=== PATIENT | male | born 1945 | race Caucasian/White ===

== ENCOUNTER 2021-09-28 18:47 | Emergency (ER) | payer OTHER ==
[~2021-09-28] VITALS: Ht 185.4 cm; Wt 68.5 kg
[2021-09-28] MEDS ORDERED: ALBU2.5V5 (19:07)
[2021-09-28] MEDS ORDERED: ASPI81CH PO (19:07)
[2021-09-28] MEDS ORDERED: ATOR10 PO (19:08)
[2021-09-28] MEDS ORDERED: ZYRTEC10 M1 PO (19:08)
[2021-09-28] MEDS ORDERED: FINA5 PO (19:09)
[2021-09-28] MEDS ORDERED: DIGOX125 MC1 PO (19:09)
[2021-09-28] MEDS ORDERED: FOLIC ACID0.4 MG (19:10)
[2021-09-28] MEDS ORDERED: METO100ER PO (19:11)
[2021-09-28] MEDS ORDERED: MIRT15 PO (19:11)
[2021-09-28] MEDS ORDERED: PANT40 PO (19:12)
[2021-09-28] MEDS ORDERED: MONT10T (19:12)
[2021-09-28] MEDS ORDERED: Coumadin2 MG PO (19:13)
[2021-09-28 19:35] LABS: BASOPHILS ABSOLUTE AUTO 0.05 K/mm3 (0.00-0.23); BASOPHILS PERCENT AUTO 1 % (0-2); EOSINOPHILS ABSOLUTE AUTO 0.13 K/mm3 (0.00-0.68); EOSINOPHILS PERCENT AUTO 3 % (0-6); Hematocrit 35.9 % (37.0-53.0); Hemoglobin 11.6 g/dL (13.5-17.5); IMMATURE GRAN ABSOLUTE AUTO 0.02 K/mm3 (0.00-0.10); IMMATURE GRAN PERCENT AUTO 0 % (0-1); LYMPHOCYTES ABSOLUTE AUTO 0.95 K/mm3 (0.84-5.20); LYMPHOCYTES PERCENT AUTO 21 % (21-46); MONOCYTES ABSOLUTE AUTO 0.43 K/mm3 (0.16-1.47); MONOCYTES PERCENT AUTO 9 % (4-13); Mean Corpuscular HGB 29.9 pg (26.0-34.0); Mean Corpuscular HGB Conc 32.3 g/dL (31.5-36.5); Mean Corpuscular Volume 93 fL (80-100); Mean Platelet Volume 10.3 fL (9.1-12.4); NEUTROPHILS ABSOLUTE AUTO 3.05 K/mm3 (1.96-9.15); NEUTROPHILS PERCENT AUTO 66 % (41-73); Platelet Count 230 K/mm3 (150-400); RDW Coefficient Variation 13.8 % (11.7-14.2); RDW Standard Deviation 47.1 fL (35.1-46.3); Red Blood Cell Count 3.88 M/mm3 (4.30-5.90); White Blood Cell Count 4.63 K/mm3 (4.00-11.30)
[2021-09-28 19:47] LABS: Anion Gap 8 mmol/L (6-16); Blood Urea Nitrogen 16 mg/dL (8-24); Bun/Creatinine Ratio 16.1 (12.0-20.0); CO2, Blood 27 mmol/L (21-32); Calcium, Blood 8.8 mg/dL (8.5-10.1); Chloride, Blood 109 mmol/L (98-108); Glomerular Filtration Rate >60 (60-); Glucose, Blood 89 mg/dL (70-99); Potassium, Blood 4.5 mmol/L (3.5-5.5); Sodium, Blood 144 mmol/L (136-145); Troponin I <0.015 ng/mL (0.000-0.040)
== END 2021-09-28 22:45 | disposition home or self-care (01) ==
LOC: ER 18:47
PROVIDERS: Emergency Medicine
DX: R07.9 Chest pain, unspecified (principal); D64.9 Anemia, unspecified; Z79.899 Other long term (current) drug therapy; Z79.82 Long term (current) use of aspirin; Z79.01 Long term (current) use of anticoagulants; I48.91 Unspecified atrial fibrillation
CPT/HCPCS: 71045; 80048; 84484; 85025; 93005; 93010; 99285-25; A9270

== ENCOUNTER 2022-04-15 00:58 | Inpatient (IN) | payer OTHER ==
[~2022-04-15] VITALS: Ht 185.4 cm; Wt 72.2 kg
[~2022-04-15 00:58] MED LIST: ALBU2.5V5; ASPI81CH PO; ATOR10 PO; Coumadin2 MG PO; DIGOX125 MC1 PO; FINA5 PO; FOLIC ACID0.4 MG; METO100ER PO; MIRT15 PO; MONT10T PO; PANT40 PO; ZYRTEC10 M1 PO
[2022-04-15 01:30] LABS: BASOPHILS ABSOLUTE AUTO 0.01 K/mm3 (0.00-0.23); BASOPHILS PERCENT AUTO 0 % (0-2); EOSINOPHILS ABSOLUTE AUTO 0.01 K/mm3 (0.00-0.68); EOSINOPHILS PERCENT AUTO 0 % (0-6); Hematocrit 38.8 % (37.0-53.0); Hemoglobin 12.6 g/dL (13.5-17.5); IMMATURE GRAN ABSOLUTE AUTO 0.05 K/mm3 (0.00-0.10); IMMATURE GRAN PERCENT AUTO 1 % (0-1); LYMPHOCYTES ABSOLUTE AUTO 0.93 K/mm3 (0.84-5.20); LYMPHOCYTES PERCENT AUTO 12 % (21-46); MONOCYTES ABSOLUTE AUTO 0.56 K/mm3 (0.16-1.47); MONOCYTES PERCENT AUTO 7 % (4-13); Mean Corpuscular HGB 27.9 pg (26.0-34.0); Mean Corpuscular HGB Conc 32.5 g/dL (31.5-36.5); Mean Corpuscular Volume 86 fL (80-100); Mean Platelet Volume 9.9 fL (9.1-12.4); NEUTROPHILS ABSOLUTE AUTO 6.12 K/mm3 (1.96-9.15); NEUTROPHILS PERCENT AUTO 80 % (41-73); Platelet Count 230 K/mm3 (150-400); RDW Coefficient Variation 17.9 % (11.7-14.2); RDW Standard Deviation 55.7 fL (35.1-46.3); Red Blood Cell Count 4.51 M/mm3 (4.30-5.90); White Blood Cell Count 7.68 K/mm3 (4.00-11.30)
[2022-04-15 01:48] LABS: Albumin, Blood 3.4 g/dL (3.4-5.0); Bilirubin, Total 1.6 mg/dL (0.1-1.0); Calcium, Blood 8.6 mg/dL (8.5-10.1); Globulin, Blood 3.3 g/dL (2.2-4.0); Potassium, Blood 4.6 mmol/L (3.5-5.5); Total Protein, Blood 6.7 g/dL (6.4-8.2)
[2022-04-15 04:28] LABS: International Normalized Ratio 1.25; Prothrombin Time Results 12.9 Sec (9.7-11.5)
[2022-04-15 05:41] LABS: BASOPHILS ABSOLUTE AUTO 0.01 K/mm3 (0.00-0.23); BASOPHILS PERCENT AUTO 0 % (0-2); EOSINOPHILS ABSOLUTE AUTO 0.01 K/mm3 (0.00-0.68); EOSINOPHILS PERCENT AUTO 0 % (0-6); Hematocrit 43.1 % (37.0-53.0); Hemoglobin 13.7 g/dL (13.5-17.5); IMMATURE GRAN ABSOLUTE AUTO 0.01 K/mm3 (0.00-0.10); IMMATURE GRAN PERCENT AUTO 0 % (0-1); LYMPHOCYTES ABSOLUTE AUTO 0.47 K/mm3 (0.84-5.20); LYMPHOCYTES PERCENT AUTO 11 % (21-46); MONOCYTES ABSOLUTE AUTO 0.27 K/mm3 (0.16-1.47); MONOCYTES PERCENT AUTO 6 % (4-13); Mean Corpuscular HGB 27.9 pg (26.0-34.0); Mean Corpuscular HGB Conc 31.8 g/dL (31.5-36.5); Mean Corpuscular Volume 88 fL (80-100); Mean Platelet Volume 9.8 fL (9.1-12.4); NEUTROPHILS ABSOLUTE AUTO 3.69 K/mm3 (1.96-9.15); NEUTROPHILS PERCENT AUTO 83 % (41-73); Platelet Count 233 K/mm3 (150-400); RDW Coefficient Variation 18.1 % (11.7-14.2); RDW Standard Deviation 56.8 fL (35.1-46.3); Red Blood Cell Count 4.91 M/mm3 (4.30-5.90); White Blood Cell Count 4.46 K/mm3 (4.00-11.30)
[2022-04-15 06:02] LABS: Albumin, Blood 3.3 g/dL (3.4-5.0); Bilirubin, Total 2.3 mg/dL (0.1-1.0); Calcium, Blood 8.2 mg/dL (8.5-10.1); Globulin, Blood 3.4 g/dL (2.2-4.0); Potassium, Blood 4.6 mmol/L (3.5-5.5); Total Protein, Blood 6.7 g/dL (6.4-8.2)
--- NOTE | 2022-04-15 13:11 | NUR ---
UPDATE PT LEFT FOR SURGERY AT 1300 VIA HOSPITAL BED AND OCCOMPANIED BY TWO STAFF MEMBERS. PT ON RA DURING TRANFER. PT CHART WITH STAFF DURING TRANSFER.
--- NOTE | 2022-04-15 13:33 | NUR ---
History, Chart, Medications and Allergies reviewed before start of procedure.Pre-Op teaching done. Pt verbalizes understanding.
--- NOTE | 2022-04-15 13:57 | NUR ---
UPDATE AT [address] PLACED ORDER FOR 5MG LOPRESSOR IV Q30. THIS RN CONTACTED HOSPITALIST FOR UPDATE TO MEDICATION ORDER. THIS RN WAS THEN INSTRUCTED TO ORDER A LR 1000MG AT A WIDE OPEN RATE DURING THE LOPRESSOR PUSHES. THIS RN PUT IN ORDERS AND CONTINUED WITH ORDERS.
--- NOTE | 2022-04-15 14:43 | NUR ---
04/15/22 1443 Chaparrita Avery PATIENT ON SCHEDULED ZOSYN. NO INTRAOPERATIVE ANTIBIOTICS ORDERED PER SURGEON.
--- NOTE | 2022-04-15 15:58 | NUR ---
DIFFICULTY KEEPING MONITORS IN PLACE DR CONRAD AWARE
--- NOTE | 2022-04-15 15:59 | NUR ---
LR BOLUS GIVEN TO HELP SUPPORT BP PER DR CONRAD 800ML
--- NOTE | 2022-04-15 16:09 | NUR ---
UPDATE REPORT RECIEVED FROM DUPLEX TRIMMER AT 1603.
--- NOTE | 2022-04-15 17:16 | NUR ---
UPDATE PT ARRIVED FROM SURGICAL PROCEDURE AT 1620. PT HAS KENNETH DRAIN AT RIGHT ABD, BANDAGE C/D/I AT THIS TIME. PT HAS NG TUBE PLACED IN RIGHT NARE PER ORDERS. PT HR TACHY UPON ARRIVAL IN THE 110-120'S. PT BP'S SOFT IN THE 90'S SYSTOLIC. PT CONFUSED POSSIBLY FROM MEDICATIONS FROM PROCEDURE, PT WANTS TO PULL ON NG TUBE THINKING THEY ARE HIS GLASSES. SAUSAGE STUFFER CONCERNED AFTER REORT OF PT RECIEVING MORE FLUIDS IN ORTO KEEP BP'S UP. THIS RN CONTACTED , TRANSFER TO ICU ORDERED.
[2022-04-15 17:21] LABS: Albumin, Blood 2.7 g/dL (3.4-5.0); Anion Gap 8 mmol/L (6-16); Blood Urea Nitrogen 29 mg/dL (8-24); Bun/Creatinine Ratio 20.1 (12.0-20.0); CO2, Blood 22 mmol/L (21-32); Calcium, Blood 8.3 mg/dL (8.5-10.1); Chloride, Blood 110 mmol/L (98-108); Creatinine, Blood 1.44 mg/dL (0.60-1.20); Glomerular Filtration Rate 50 (60-); Glucose, Blood 134 mg/dL (70-99); Phosphorus, Blood 5.7 mg/dL (2.5-4.9); Potassium, Blood 5.1 mmol/L (3.5-5.5); Sodium, Blood 140 mmol/L (136-145)
--- NOTE | 2022-04-15 17:37 | NUR ---
TRANSFER UPDATE PT TRANSFERED TO ICU 5 AT 1730 VIA HOSPITAL BED AND SLID TO ICU VIA SLIDE SHEET AND FOUR PERSONEL. PT BELONGINGS AND CHART WITH PT FOR TRANSFER. REPORT GIVEN TO ICU NURSE AT BEDSIDE.
--- NOTE | 2022-04-15 18:55 | NUR ---
ASSUMPTION OF CARE AND SHIFT SUMMARY RECEIVED PATIENT FROM PCU AT 1725. PATIENT ANWERED ALL ORIENTATION QUESTIONS CORRECTLY; SLOW TO RESPOND. PATIENT DOES APPEAR TO HAVE PERIODS OF CONFUSION AND NEEDS REMINDERS NOT TO GRAB AT NG TUBE. PATIENT NEUTRAL AFFECT. ANXIOUS AT TIMES. WEAK BUT ABLE TO MOVE ALL EXTREMITIES. PATIENT AFEBRILE. PATIENT COMPLAINS OF 6/10 ABD PAIN. RESP WNL; SATTING 90% AND GREATER ON RA. LUNGS CLEAR T/O. PATIENT IN A. FIB WITH RVR AND SOFT BP WHEN ARRIVED. 15 MG DILTIAZEM PUSH GIVEN OVER SEVERAL MINUTES. RVR RESOLVED AND BP HELD STABLE. FINGERNAILS COLD AND DUSKY BUT CAP REFILL LESS THAN [address]. ABD GUARDED WITH HYPOACTIVE BOWEL SOUNDS NOTED. KENNETH DRAIN DRAINED 80 MLS OF BILIARY DRAINAGE. NG TO LIS. DATE OF LAST BM UNKNOWN. MILAN IN PLACE; DRAINING DARK ORANGE COLORED URINE. 2 LACERATIONS NOTED TO ABD, ALONG WITH KENNETH DRAIN TO R ABD. LR AT 100 MLS/ HOUR, NS TKO FOR ZOSYN. BED LOW, CALL LIGHT IN REACH, BED ALARM ON. PATIENT ORIENTED TO UNIT, ROOM AND CALL LIGHT. REPORT WILL BE GIVEN TO ASSUMING TOOL DESIGN DRAFTER NURSE SHORTLY.
--- NOTE | 2022-04-15 20:00 | NUR ---
ASSUMED CARE OF PT AT 1915. REPORT RECEIVED AT BEDSIDE. PT PRESENTS IN BED. ALERT AND SOMEWHAT DISORIENTED. DOES HOLD CONVERSATION WELL. WHEN NOT ENGAGED IN CONVERSATION PT DEMONSTRATES POOR SHORT TERM MEMORY, AND BEING DISORIENTED. HAVE MEDICATED PT WITH 25 MCG'S FENTANYL FOR ABDOMINAL PAIN. PT ACKNOWLEDGES THIS HAS HELPED. KENNETH DRAINED OF 100 ML SEROUSANGEOUS FLUID. KENNETH BULB BACK TO COMPRESSED. PT ON ROOM AIR MAINTAINS > 90 PERCENT SATURATIONS. SATURATIONS HAVE DEMONSTRATED BEING DIFFIUCLT TO READ TO FINGERS. WILL POSSIBLY DO SPOT CHECKS. WILL REVIEW CHART AND PLAN OF CARE.
--- NOTE | 2022-04-16 01:44 | NUR ---
PT ADMITS THAT HE HAS BEEN HAVING HALLUCINATIONS. "THERE ARE A BUNCH OF BEES UP THERE." HE INDICATES BY POINTING. ALSO ACKNOWLEDGES THAT HE KNOWS THAT THIS IS JUST A HALLUCINATION. PT HAS BEEN MEDICATED WITH 25 MCG'S AND ANOTHER DOSE OF 50 MCG'S FENTANYL FOR ABDOMINAL PAIN POST OP. PT STATES THAT THESE DOSES HAVE BEEN HELPFUL. WILL CONTINUE TO MONITOR PT.
--- NOTE | 2022-04-16 01:49 | NUR ---
DILTIAZEM DRIP DECREASED TO 5 MG/HOUR. PT'S HEART RATE 80-90'S TO ELICIT DECREASE.
--- NOTE | 2022-04-16 03:23 | NUR ---
PT'S SISTER AND LALI ARRIVE FROM [place]. PT VISITS WITH THEM. HAS SOME HALLUCINATIONS DURING THEIR VISIT. SISTER HAS ALSO TAKEN PT'S BELONGINGS HOME INCLUDING HIS WALLET.
[2022-04-16 05:23] LABS: Hematocrit 36.8 % (37.0-53.0); Hemoglobin 11.8 g/dL (13.5-17.5); Mean Corpuscular HGB Conc 32.1 g/dL (31.5-36.5); Mean Corpuscular Volume 87 fL (80-100); Mean Platelet Volume 10.4 fL (9.1-12.4); Platelet Count 180 K/mm3 (150-400); RDW Coefficient Variation 18.6 % (11.7-14.2); RDW Standard Deviation 57.2 fL (35.1-46.3); Red Blood Cell Count 4.21 M/mm3 (4.30-5.90); White Blood Cell Count 4.86 K/mm3 (4.00-11.30)
--- NOTE | 2022-04-16 05:32 | NUR ---
MEDICATED PT WITH 25 MCG'S FENTANYL THIS MORNING FOR COMPLAINT OF POST OP SURGICAL PAIN. PT REMAINS MILD/MODERATELY CONFUSED. DOES REORIENT QUICKLY. PT DOES HALLUCINATE SEEING HIS DOG IN THE ROOM. PT HAS BEEN TURNED Q 2 HOURS THROUGHOUT THE NIGHT. PT DOES DEMONSTRATE SOME FEAR DURING TURNS. REASSURED PT OF SAFETY WITH TURNS. ALLOWED PT TO COUNT TO THREE TO CONTROL THE TURNS. WILL CONTINUE TO MONITOR PT, AND WILL REPORT OFF TO ONCOMING RN.
[2022-04-16 06:04] LABS: Albumin, Blood 2.5 g/dL (3.4-5.0); Albumin/Globulin Ratio 0.8 (0.8-1.8); Bilirubin, Total 2.6 mg/dL (0.1-1.0); Bun/Creatinine Ratio 24.4 (12.0-20.0); Calcium, Blood 8.4 mg/dL (8.5-10.1); Creatinine, Blood 1.23 mg/dL (0.60-1.20); Globulin, Blood 3.1 g/dL (2.2-4.0); Magnesium, Blood 2.1 mg/dL (1.6-2.4); Phosphorus, Blood 3.3 mg/dL (2.5-4.9); Potassium, Blood 4.7 mmol/L (3.5-5.5); Total Protein, Blood 5.6 g/dL (6.4-8.2)
[2022-04-16 06:06] LABS: BAND PERCENT MAN 38 % (0-8); BASOPHILS PERCENT MAN 0 % (0-2); EOSINOPHILS PERCENT MAN 0 % (0-6); LYMPHOCYTES ABSOLUTE MAN 0.34 K/mm3 (0.84-5.20); LYMPHOCYTES PERCENT MAN 7 % (21-46); MONOCYTES ABSOLUTE MAN 0.14 K/mm3 (0.16-1.47); MONOCYTES PERCENT MAN 3 % (4-13); NEUTROPHILS ABSOLUTE MAN 4.37 K/mm3 (1.96-9.15); SEG NEUTROPHILS PERCENT MAN 52 % (41-73); TOTAL CELLS COUNTED 100
--- NOTE | 2022-04-16 07:48 | NUR ---
ASSUME CARE: I have assumed care of pt at this time.
[2022-04-16] MEDS ORDERED: PRED FORTE5 ML BOTHEYES (11:47)
[2022-04-16] MEDS ORDERED: LATA.005SO BOTHEYES (11:49)
[2022-04-16] MEDS ORDERED: TIMO.5OPSO BOTHEYES (11:49)
[2022-04-16] MEDS ORDERED: FLUTICASONE-SA1 EAC9 INH (15:06)
[2022-04-16] MEDS ORDERED: COMBIVENT RESPIM4 G1 INH (15:07)
[2022-04-16] MEDS ORDERED: MIDO5 PO (15:09)
[2022-04-16] MEDS ORDERED: FOLI1 PO (15:10)
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
--- NOTE | 2022-04-16 20:00 | NUR ---
ASSUMED CARE OF PT AT 1915. REPORT RECEIVED AT BEDSIDE. PT PRESENTS IN BED. KAYCEE VEST IN PLACE FOR SAFETY. UNFORTUNATELY PT PULLED OUT AN IV, AND HIS ABDOMINAL DRESSING. TOOK HIS LIFT SHEET AND TIED THE LIFT STRAPS AROUND HIS LEG. PULLED AT HIS MILAN CATHETER ALL IN A SHORT PERIOD WHILE THIS RN WAS OUT OF THE ROOM. SOFT WRIST RESTRAINTS APPLIED. ALSO REQUESTED REMOTE MONITORING WITH CAMERA BE UTILIZED. WILL REVIEW CHART AND PLAN OF CARE FOR THIS PT.
--- NOTE | 2022-04-17 01:46 | NUR ---
CALL MADE TO DR CARLOS CONCERNING PATIENT NOT SLEEPING FOR > 2 DAYS. ALSO ABOUT INCREASING DELIRIUM TYPE AFFECT. ORDER FOR ATIVAN 0.5 MG WITH A MAY REPEAT TIMES ONE ORDER. BOTH DOSES HAVE BEEN GIVEN FOR A TOTAL OF 1 MG IV. PT CURRENTLY SLEEPING. WILL MONITOR PT CLOSELY FOR ANY CHANGES. CARDIAZEM AT 10 MG PER HOUR. HEART RATE REMAINS AFIB WITH RATE < 120 BPM. KENNETH DRAIN TO LIWS WITH RETURN OF SEROUSAINGEOUS DRAINAGE. DRESSING PLACED OVER KENNETH DRAIN INSERTION SITE. PT HAS HAD EPISODES OF GETTING OUT OF SOFT WRIST RESTRAINT ON LEFT HAND. HAVE MADE USE OF REMOTE MONITORS TO GIVE VIEW OF PT FOR HIS SAFETY.
[2022-04-17 04:45] LABS: BASOPHILS ABSOLUTE AUTO 0.01 K/mm3 (0.00-0.23); BASOPHILS PERCENT AUTO 0 % (0-2); Hematocrit 32.4 % (37.0-53.0); Hemoglobin 10.6 g/dL (13.5-17.5); LYMPHOCYTES ABSOLUTE AUTO 0.27 K/mm3 (0.84-5.20); LYMPHOCYTES PERCENT AUTO 4 % (21-46); MONOCYTES ABSOLUTE AUTO 0.17 K/mm3 (0.16-1.47); MONOCYTES PERCENT AUTO 3 % (4-13); Mean Corpuscular HGB Conc 32.7 g/dL (31.5-36.5); Mean Corpuscular Volume 86 fL (80-100); Platelet Count 157 K/mm3 (150-400); RDW Coefficient Variation 18.5 % (11.7-14.2); RDW Standard Deviation 56.2 fL (35.1-46.3); Red Blood Cell Count 3.79 M/mm3 (4.30-5.90); White Blood Cell Count 6.19 K/mm3 (4.00-11.30)
[2022-04-17 04:46] LABS: EOSINOPHILS PERCENT AUTO 0 % (0-6); IMMATURE GRAN ABSOLUTE AUTO 0.12 K/mm3 (0.00-0.10); IMMATURE GRAN PERCENT AUTO 2 % (0-1); NEUTROPHILS ABSOLUTE AUTO 5.62 K/mm3 (1.96-9.15); NEUTROPHILS PERCENT AUTO 91 % (41-73)
[2022-04-17 05:27] LABS: Albumin, Blood 2.3 g/dL (3.4-5.0); Albumin/Globulin Ratio 0.7 (0.8-1.8); Bilirubin, Total 2.3 mg/dL (0.1-1.0); Bun/Creatinine Ratio 24.7 (12.0-20.0); Calcium, Blood 8.4 mg/dL (8.5-10.1); Creatinine, Blood 0.93 mg/dL (0.60-1.20); Globulin, Blood 3.3 g/dL (2.2-4.0); Phosphorus, Blood 1.8 mg/dL (2.5-4.9); Potassium, Blood 3.1 mmol/L (3.5-5.5); Total Protein, Blood 5.6 g/dL (6.4-8.2)
--- NOTE | 2022-04-17 07:32 | NUR ---
PT HAS HAD APPROX 2 AND A HALF HOUR SLEEP AFTER DOSE OF ATIVAN. PT CURRENTLY VERY ACTIVE IN BED. ATTEMPTS TO GET AHOLD OF TUBES AND LINES. KENNETH DRAIN CONNECTED TO LIWS WITH RETURN OF SEROUSAINGEOUS FLUID. DRESSING TO ABDOMEN INTACT. NG TUBE WITH GREENISH OUTPUT. WILL REVIEW CONTINUE TO MONITOR PT, AND WILL REPORT OFF TO ONCOMING RN.
--- NOTE | 2022-04-17 11:11 | NUR ---
Transfer note Pt transfered from ICU, report from suzette Kulkarni. Pt to room at approx 1050, 4 person assist with slider sheet. Pt alert, oriented to person and surrounding. Speech in garbled. Spo2 >90% on ra, resp rate 24, ls coarse t/o. When asked pt shakes had "no" when asked if pain and sob. Pt tele afib 90-120, bp stable. Abd distended, firm, tender, absent bt x4 quad; ng tube to low intermittent suctions drainging brown; juana to suction low/mod light red drainage in color. Bilateral wirst restraints and phyllis vest in place. Cardizem gtt at 15mg/hr, ns at 100 ml/hr, kphos and antibiotics infusing per orders. Vss. No other acute changes. Will continue to monitor.
--- NOTE | 2022-04-17 19:34 | NUR ---
Shift Summary No acute changes during shift. KENNETH drain back to KENNETH suctions, no longer on wall suction, per new orders; draining serosanguineous fluid. Pt continues to be confused, calling out for "Rebekah". Pt has had several BM this afternoon, liquid dark brown, with initially small brown pellet. Ng tube in place and set to low intermittent suction, with minimla brown/green drainage. Other vss. No other acute changes noted. Report given to oncoming rn.
[2022-04-18 04:05] LABS: Hematocrit 31.3 % (37.0-53.0); Hemoglobin 10.3 g/dL (13.5-17.5); Mean Corpuscular HGB 28.2 pg (26.0-34.0); Mean Corpuscular HGB Conc 32.9 g/dL (31.5-36.5); Mean Corpuscular Volume 86 fL (80-100); Mean Platelet Volume 10.3 fL (9.1-12.4); Platelet Count 169 K/mm3 (150-400); RDW Coefficient Variation 18.2 % (11.7-14.2); RDW Standard Deviation 56.3 fL (35.1-46.3); Red Blood Cell Count 3.65 M/mm3 (4.30-5.90); White Blood Cell Count 7.38 K/mm3 (4.00-11.30)
[2022-04-18 04:27] LABS: Albumin, Blood 2.1 g/dL (3.4-5.0); Albumin/Globulin Ratio 0.6 (0.8-1.8); Bilirubin, Total 2.1 mg/dL (0.1-1.0); Bun/Creatinine Ratio 25.2 (12.0-20.0); Calcium, Blood 7.9 mg/dL (8.5-10.1); Creatinine, Blood 0.79 mg/dL (0.60-1.20); Globulin, Blood 3.3 g/dL (2.2-4.0); Phosphorus, Blood 1.9 mg/dL (2.5-4.9); Potassium, Blood 3.2 mmol/L (3.5-5.5); Total Protein, Blood 5.4 g/dL (6.4-8.2)
[2022-04-18 05:18] LABS: BAND PERCENT MAN 14 % (0-8); BASOPHILS PERCENT MAN 0 % (0-2); EOSINOPHILS PERCENT MAN 0 % (0-6); LYMPHOCYTES ABSOLUTE MAN 0.22 K/mm3 (0.84-5.20); LYMPHOCYTES PERCENT MAN 3 % (21-46); MONOCYTES ABSOLUTE MAN 0.29 K/mm3 (0.16-1.47); MONOCYTES PERCENT MAN 4 % (4-13); NEUTROPHILS ABSOLUTE MAN 6.86 K/mm3 (1.96-9.15); SEG NEUTROPHILS PERCENT MAN 79 % (41-73); TOTAL CELLS COUNTED 100
--- NOTE | 2022-04-18 06:00 | NUR ---
PT RESTING MOST OF NIGHT, AROUSES TO VOICE AND ABLE ANSWER QUESTIONS, REMEMBERS THAT HE HAD ABDOMINAL PAIN. PT IS FORGETFUL, AND HAS TO BE REORIENTED, FOUND PULLING AT GOWN & BLANKETS AND MILAN. WRIST RESTRAINTS & KAYCEE IN PLACE. VSS, CONT IN AFIB W RATE CONTROLLED, CARDIZEM GTT AT 10MG/HR. MED W FENTANYL X1 AFTER KENNETH DRAIN EMPTIED AND PT HAD INCREASED PAIN. NG W THICK DK MAROON DRNG. HAS HAD 2 BROWN UNFORMED STOOLS. CONT ON ROOM AIR.
--- NOTE | 2022-04-18 18:19 | NUR ---
Shift Summary Pt appear to be sleeping t/o shift, wakes easily to verbal stimuli; oriented to person, surrounding and event; calm and cooperative with care. Pt intermittently reports pain to abd, passes quickly. Pt forgetful, pulling at gown and blanket, bilateral wrist restraints and phyllis vest in place. Pt report seeing "bugs on the ceiling". Pt denies chest pain/pressure, sob, nasuea and dizziness during shift. Tele with pvc 90-120, on cardizem gtt at 10mg/ml during shift, bp stable. Ls clear t/o, spo2 >90% on ra, breathing even and unlabored, tachypnic at times. Pt abd mild distention, firm and tender on palpataion, hypo active t/o, pt continues to pass gas and pass loose stools, brown in color. Ng tube in place this am draining brown liquid, new order to remover per Dr Sorto, removed this evening, pt tolerated well. KENNETH draing to ruq draining serosanguineous fluids approx 100ml out during shift. Ogden in place, patent and draining. Vss. No other acute changes noted. Will contine to monitor until report given to oncoming rn.
--- NOTE | 2022-04-19 05:57 | NUR ---
SHIFT SUMMARY NO ACUTE CHANGES THIS SHIFT. VSS. ALERT, ORIENTED TO 2-3. OFTEN TIMES MUMBLES TO HIMSELF. REMAINS IN RESTRAINTS, SBWR AND VEST. WAS SUCCESFUL AT GETTING OUT OF WRIST RESTRAINTS X2. BEGINS TO PULL AT LINES. PT ON CARDIZEM GTT @ 10 UPON SHIFT START, THEN TITRATED TO 5, THEN 0. HR 80'S. BP STABLE. MILAN PATENT AND DRAINING. KENNETH DRAIN PATENT, DRAINING SEROSAINGUINOUS FLUID. PAIN MEDS X1 PER PT REQUEST. OTHERWISE, PT RESTING OFF AND ON. BED ALARM ON. CAMERAS ON. BED IN LOW POSITION.
[2022-04-19 08:19] LABS: BASOPHILS ABSOLUTE AUTO 0.01 K/mm3 (0.00-0.23); BASOPHILS PERCENT AUTO 0 % (0-2); EOSINOPHILS ABSOLUTE AUTO 0.15 K/mm3 (0.00-0.68); EOSINOPHILS PERCENT AUTO 2 % (0-6); Hemoglobin 9.9 g/dL (13.5-17.5); IMMATURE GRAN ABSOLUTE AUTO 0.05 K/mm3 (0.00-0.10); IMMATURE GRAN PERCENT AUTO 1 % (0-1); LYMPHOCYTES ABSOLUTE AUTO 0.35 K/mm3 (0.84-5.20); LYMPHOCYTES PERCENT AUTO 5 % (21-46); MONOCYTES ABSOLUTE AUTO 0.41 K/mm3 (0.16-1.47); MONOCYTES PERCENT AUTO 6 % (4-13); Mean Corpuscular HGB 28.3 pg (26.0-34.0); Mean Corpuscular Volume 86 fL (80-100); Mean Platelet Volume 10.3 fL (9.1-12.4); NEUTROPHILS ABSOLUTE AUTO 5.69 K/mm3 (1.96-9.15); NEUTROPHILS PERCENT AUTO 85 % (41-73); Platelet Count 179 K/mm3 (150-400); RDW Coefficient Variation 18.1 % (11.7-14.2); RDW Standard Deviation 56.2 fL (35.1-46.3); White Blood Cell Count 6.66 K/mm3 (4.00-11.30)
[2022-04-19 08:34] LABS: Albumin, Blood 1.9 g/dL (3.4-5.0); Anion Gap 7 mmol/L (6-16); Blood Urea Nitrogen 17 mg/dL (8-24); Bun/Creatinine Ratio 23.7 (12.0-20.0); CO2, Blood 24 mmol/L (21-32); Calcium, Blood 7.7 mg/dL (8.5-10.1); Chloride, Blood 115 mmol/L (98-108); Creatinine, Blood 0.72 mg/dL (0.60-1.20); Glomerular Filtration Rate 95 (60-); Glucose, Blood 90 mg/dL (70-99); Phosphorus, Blood 1.8 mg/dL (2.5-4.9); Sodium, Blood 146 mmol/L (136-145)
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
--- NOTE | 2022-04-19 16:04 | NUR ---
Shift Summary Pt alert, oriented to person and surroundings, pt confused, hallucinating at times. Pt up in chair this am for majority of shift, pt back to bed this afternoon. Pt has KENNETH drain to ruq, continues to drain serosanguineous fluids. Pt had difficulty swallowing this am with breakdfast, notified Dr Cisneros, new orders for speech therapy eval. Dr Sorto at bedside this afternoon, new order to remove wade; post removal void noted. Pt had 2 bms during shift, dark brown and pasty. Pt denies pain, sob, nausea, and dizziness. Pt spo2 >90% on ra. Tele afib, hr increased to 120-130's restarted cardizem gtt this afternoon, MD aware. Vss. no other acute changes noted. Will continue to monitor until report given to oncoming rn.
--- NOTE | 2022-04-19 19:57 | NUR ---
ASSUMPTION OF CARE - NOTED SOME DRAINAGE FROM KENNETH DRAIN ON GOWN AND PT SMELT OF A RECENT BOWEL MOVEMENT. RN AND ANSWERING SERVICE TELEPHONE OPERATOR GAVE PT BEDBATH AND REPLACED SOME SHEETS. RN CHANGED KENNETH DRESSING WITH SPLIT GUAZE AND MEDIPORE TAPE. I ALSO STRIPPED THE KENNETH DRAIN IN WHICH PATIENT DID EXPERIENCE SOME DISCOMFORT WITH THAT. STITCH REMAINS INTACT AND NOT TUGGING OR PULLING. INSERTION SITE OF DRAIN LOOKS C/D/I WITHOUT REDNESS OR PURULENT DRAINAGE. ABD BINDER PLACED ON PATIENT IN ATTEMPT TO KEEP PATIENT FROM PULLING AT DRAIN OR LINES. VEST AND WRIST RESTRAINTS REMOVED AT THIS TIME AND WILL TRIAL PT WITHOUT THEM. PT APPEARS TO BE TIRED AND WANTS TO REST. BED ALARM AND THREE SIDE RAILS IN PLACE. I NOTIFIED MONITORING ROOM THAT HE IS LESS RESTRAINED, AND TO PLEASE NOTIFY SOON PATIENT APPEARS TO BE MOVING AROUND. POWERGLIDE DRESSING ASSESSED AND APPEARS TO BE PEELING UP SOME, WILL REDRESS THAT POWERGLIDE WELL. LAP SITES HAVE SURGICAL TAPE STILL IN PLACE AND APPEAR TO BE C/D/I WELL.
[2022-04-20 01:20] LABS: BASOPHILS PERCENT AUTO 0 % (0-2); EOSINOPHILS ABSOLUTE AUTO 0.16 K/mm3 (0.00-0.68); EOSINOPHILS PERCENT AUTO 3 % (0-6); Hematocrit 30.4 % (37.0-53.0); Hemoglobin 10.1 g/dL (13.5-17.5); IMMATURE GRAN ABSOLUTE AUTO 0.06 K/mm3 (0.00-0.10); IMMATURE GRAN PERCENT AUTO 1 % (0-1); LYMPHOCYTES ABSOLUTE AUTO 0.46 K/mm3 (0.84-5.20); LYMPHOCYTES PERCENT AUTO 8 % (21-46); MONOCYTES ABSOLUTE AUTO 0.37 K/mm3 (0.16-1.47); MONOCYTES PERCENT AUTO 6 % (4-13); Mean Corpuscular HGB 28.5 pg (26.0-34.0); Mean Corpuscular HGB Conc 33.2 g/dL (31.5-36.5); Mean Corpuscular Volume 86 fL (80-100); Mean Platelet Volume 10.4 fL (9.1-12.4); NEUTROPHILS ABSOLUTE AUTO 4.88 K/mm3 (1.96-9.15); NEUTROPHILS PERCENT AUTO 82 % (41-73); Platelet Count 206 K/mm3 (150-400); RDW Coefficient Variation 17.9 % (11.7-14.2); RDW Standard Deviation 55.7 fL (35.1-46.3); Red Blood Cell Count 3.55 M/mm3 (4.30-5.90); White Blood Cell Count 5.93 K/mm3 (4.00-11.30)
[2022-04-20 01:41] LABS: Albumin, Blood 1.9 g/dL (3.4-5.0); Albumin/Globulin Ratio 0.6 (0.8-1.8); Bilirubin, Total 1.8 mg/dL (0.1-1.0); Bun/Creatinine Ratio 23.2 (12.0-20.0); Calcium, Blood 7.9 mg/dL (8.5-10.1); Creatinine, Blood 0.78 mg/dL (0.60-1.20); Globulin, Blood 3.3 g/dL (2.2-4.0); Magnesium, Blood 1.7 mg/dL (1.6-2.4); Phosphorus, Blood 2.8 mg/dL (2.5-4.9); Total Protein, Blood 5.2 g/dL (6.4-8.2); Vancomycin, Trough 7.3 ug/mL (5.0-10.0)
--- NOTE | 2022-04-20 04:10 | NUR ---
SHIFT SUMMARY PT RESTED WELL THROUGH THE NIGHT. ALERT AND ORIENTED, ABLE TO MAKE NEEDS KNOWN. COOPERATIVE WITH PLAN OF CARE, EASILY REDIRECTABLE. INTERMITTENTLY CONFUSED. TELE READS AFIB 90'S - CARDIZEM GTT RUNNING 5MG/HR. NO C/O CHEST PAIN. SATS >95% ON ROOM AIR. RESTRAINTS REMOVED AT START OF SHIFT AND HAS BEEN GREAT SINCE. BED ALARM REMAINS ON, BUT PT MENTATION MUCH IMPROVED. PT CALLS OUT WHEN HE NEEDS TO VOID - BEEN USING THE URINAL. NO PAIN. VSS. RECEIVING IV ABX AND ELECTROLYTE REPLACEMENT. NO ISSUES WITH PATIETN PULLING AT LINES OR DRAINS. CALL LIGHT WITHIN REACH, BED ALARM ON. BED IN LOWEST POSITION AND WILL CONTINUE TO [facility].
--- NOTE | 2022-04-20 08:00 | NUR ---
Pt is awakened easily, and conversant. He is oriented to person, place, date, and ongoing events. Able to tell me he is in the hospital for an ulcer, that he had surgery, and that he thinks it might be nearly the first of April. Recalls that his sister was here twice, and she went back to [place], and that his niece is watching after his dog at home. Following directions, but sleepy when not engaged in conversation or activity. Denies having any pain at this time. ORal care done, glasses put on at his request, and face washed with damp washcloth. Repositioned in bed. He says that he would really like to be able to start eating again. Also would really like to have a shave today.
--- NOTE | 2022-04-20 12:14 | NUR ---
Pt was sitting up in chair, and started to work with PT. During the walk he because ill-feeling and had to sit down. Blood pressure noted 90/66 at that time, down from 123/84 which was taken while sitting just before working with PT. He was assisted back into the bed, and then c/o pressure headache 06/01. PERRL, and speech and cognition are as they were this morning. He is oriented. ADAN jeffersone placed on pt, blood pressure improved to [address] Cisneros called to report changes.
--- NOTE | 2022-04-20 12:47 | NUR ---
Spoke with Kathi, the pt's sister on the phone and updated her on the pt's condition and ongoing care for him, and plan of care going forward. The pt is sleeping when I came back into the room. He awakens easily, and states his headache is still present. Given Toradol IV as ordered.
[2022-04-20 14:54] LABS: Bun/Creatinine Ratio 20.2 (12.0-20.0); Calcium, Blood 7.7 mg/dL (8.5-10.1); Creatinine, Blood 0.79 mg/dL (0.60-1.20); Potassium, Blood 3.7 mmol/L (3.5-5.5)
--- NOTE | 2022-04-20 15:11 | NUR ---
Dobhoff placed in the right nare. Pt was able to swallow and cooperated with the insertion. He tolerated it well.
--- NOTE | 2022-04-20 16:14 | NUR ---
Waiting for results of xray to verify dobhoff placement before starting tube feeding. The pt is dozing in the recliner chair, awakens easily when spoken to.
--- NOTE | 2022-04-20 17:11 | NUR ---
Pt remained alert, oriented x 4 and cooperative today. No restraits were needed to protect the pt's safety. He was sleepy throughout the day, but not confused. He was up to the chair with occupational therapy today, and when walking in the room with PT had a feeling of being "woozy" and was also hypotensive at the time. This resolved after he was back in bed. He also had a pressure/throbbing headache at the same time, which subsided some on its own, but was later completely relieved with IV Toradol. He unfortunately did not pass his swallow evaluation today, so a Dobhoff was placed and after imaging confirmation of placement, the enteral nutrition was started this evening. Plan is for a barium swallow study tomorrow if possible. He was up to the chair again this afternoon at his request. He has been sometimes continent of urine, and other times incontinent while sleeping. Oral care done by the patient with RN direction.
--- NOTE | 2022-04-20 17:53 | NUR ---
Swelling to the forearms, elbows bilaterally which were noticed this morning are changed by the end of this shift: Swelling to the right forearm and elbow have nearly all resolved after activity and elevation. Left forearm and elbow are still swollen and swelling of shaft of penis is noted this evening. Call earlier to Dr. Cisneros and received order to d/c the continuous saline IV infusion as the pt is now on tube feedings and flushes.
[2022-04-21 02:29] LABS: Bun/Creatinine Ratio 22.8 (12.0-20.0); Calcium, Blood 7.7 mg/dL (8.5-10.1); Creatinine, Blood 0.79 mg/dL (0.60-1.20); Magnesium, Blood 1.7 mg/dL (1.6-2.4); Phosphorus, Blood 2.3 mg/dL (2.5-4.9); Potassium, Blood 3.1 mmol/L (3.5-5.5)
[2022-04-21 02:32] LABS: Vancomycin, Trough 15.1 ug/mL (5.0-10.0)
--- NOTE | 2022-04-21 04:07 | NUR ---
SHIFT SUMMARY PT RESTED WELL THROUGH THE NIGHT. ALERT AND ORIENTED, ABLE TO MAKE NEEDS KNOWN. COOPERATIVE WITH PLAN OF CARE. TELE READS AFIB 80-90'S. CARDIZEM GTT RUNNING AT 5MG/HR. NO C/O CHEST PAIN. SATS >95% ON ROOM AIR. VOIDING TO URINAL WITH ASSISTANCE, ATTENDS IN PLACE IN CASE OF ACCIDENT. NO BM THUS FAR. TUBE FEEDS INCREASED TO 45ML/HR WITH 60ML WATER FLUSH Q1 HR. TURNED Q2. ABD IN PLACE, KENNETH DRAIN OUTPUT 20ML. ELECTROLYTE REPLACEMENT GIVEN - SEE EMAR. MENTATION CONTINUES TO IMPROVE. POWERGLIDE DRESSING CHANGED. VSS. CALL LIGHT WITHIN REACH, BED ALARM ON. BED IN LOWEST POSITION. WILL CONTINUE TO MONITOR. CAMERA ON IN ROOM.
--- NOTE | 2022-04-21 09:11 | NUR ---
Pt is quite alert and oriented today, and speech is clearer. He states that he is "comfortable enough". Worked with speech therapist today, and was able to eat a small amount of breakfast and take oral medications with applesauce. Cardizem gtt on hold at this time; heart rate is 72 bpm after administration of Toprol XL and digoxin. Declined OOB to chair. Voiding using urinal. Tube feeding continues until oral intake is consistent, now at goal rate of 45 cc/hour with 60cc / hour flushes.
--- NOTE | 2022-04-21 11:37 | NUR ---
Assisted pt to use the phone to call his sister, Rebekah. I spoke with Rebekah and gave her an update. Asked her to also call other family members to keep them in the loop as pt requested. Pt assisted to sit at side of bed to use urinal, and orthostatic blood pressures were taken. lyin/71, pulse 81 sittin/60 pulse 82 standin/74 pulse 86 Pt denied dizzyness. lightheadedness and "woozy feeing. Used walker to walk a few steps and get to the chair, waiting for lunch tray.
--- NOTE | 2022-04-21 13:21 | NUR ---
Spiritual care visit conducted. Pt is lying in bed and alert. He is easily encouraged and energize by his own stories, so he tells me many stories about his life, his experience and his friends. He also talks at length about his dog "Moira" and how he is always within six feet of him when he is home. Pt tells me of his frustrations with having limitations and that he loves being outside and gardening. I normalize pt's experience and provide therapeutic listening and gentle family service counselor. Pt responds well and shows signs of an elevated mood.
--- NOTE | 2022-04-21 13:40 | NUR ---
Pt does not remember to use call light for activity assistance. He set off the bed alarm twice in the past hour. Walked into the bathroom to void and have BM on commode. He had trouble understanding directions on how to use the pull cord on the wall when finished toileting; instead was attempting to wrap it around the pull-bar on wall "because I was done". Becomes a bit disoriented and shows difficulty in following directions with use of walker. He is however oriented to person, place, date, and recent events. He seems fatigued and sleeps in between all activity/care. Sat up for lunch for 30 minutes in his recliner chair, and ate about 30% of his lunch tray.
--- NOTE | 2022-04-21 15:58 | NUR ---
Pt attempted OOB, but then said that he didn't need to get up once the bed alarm went off.
--- NOTE | 2022-04-21 17:13 | NUR ---
Assisted up to chair for dinner. He requires a lot of cues, but follows directions cooperatively. Chair/bed alarm in use as the pt doesn't remember to call for assistance.
[2022-04-22 02:44] LABS: Albumin, Blood 1.9 g/dL (3.4-5.0); Anion Gap 7 mmol/L (6-16); Blood Urea Nitrogen 16 mg/dL (8-24); CO2, Blood 23 mmol/L (21-32); Calcium, Blood 7.8 mg/dL (8.5-10.1); Chloride, Blood 112 mmol/L (98-108); Glomerular Filtration Rate 92 (60-); Glucose, Blood 93 mg/dL (70-99); Magnesium, Blood 2.1 mg/dL (1.6-2.4); Phosphorus, Blood 1.6 mg/dL (2.5-4.9); Potassium, Blood 3.6 mmol/L (3.5-5.5); Sodium, Blood 142 mmol/L (136-145)
[2022-04-22 02:46] LABS: Vancomycin, Trough 15.2 ug/mL (5.0-10.0)
--- NOTE | 2022-04-22 06:56 | NUR ---
NOC SHIFT SUMMARY PT ALERT TO LETHARGIC OVERNIGHT, ORIENTED X2-4. HALLUCINATIONS AND LOW GRADE FEVER OVERNIGHT. PT ABLE TO ANSWER DIRECT ORIENTATION QUESTIONS, BUT WOULD TALK ABOUT BOXES IN ROOM FROM HOME ETC. AFIB ON TELEMETRY, RATE CONTROLLED. AMBULATED SBA W/WALKER TO BATHROOM. BM X1. FREQUENT URINATION, BLADDER SCAN SHOWS LESS THAN 100 POST VOID. PT COMPLAINING OF BURNING W/URINATION THIS AM. PT ALSO COMPLAINING OF NAUSEA THIS AM. TF HELD @ 0630 FOR NAUSEA. WILL CONTINUE TO MONITOR AND PASS ON TO DAY RN
--- NOTE | 2022-04-22 08:26 | NUR ---
PT ALERT, SITTING UP IN BED. PT REPORTS DASILVA 9/10 PAIN, WORSE WITH POSITION CHANGE, REPORTS DOUBLE, BLURRED, AND HALO VISION. PT VERY AGITATED, NON-COMPLIANT WITH NEURO ASSESSMENT, GIVES INAPPROPRIATE ANSWERS REFUSES TO ANSWER. VSS. TEMP NOTED 99.3. PT VERY IMPULSIVE, AGITATED BECOMES MORE AGITATED WHEN ATTEMPTS ARE MADE TO REORIENT OR DETOUR PT FROM EXITING BED. PT NOW IS NAUSEOUS, DR GARAY IS CALLED WITH CONCERNS, HE WILL BE IN TO SEE PT SHORTLY, TELEPHONE ORDER OBTAINED FOR DIGOXIN LEVEL R/T THE HALO VISION.
[2022-04-22 09:26] LABS: Digoxin (Lanoxin) 0.48 ug/mL (0.80-2.00)
--- NOTE | 2022-04-22 16:04 | NUR ---
TUBE FEEDING WILL RESUME WHEN K PHOSPHATE IS STARTED, K PHOSPHATE WILL BEGIN ONCE VANCOMYCIN HAS COMPLETED
--- NOTE | 2022-04-22 17:10 | NUR ---
PT VERY CONFUSED TODAY, ORIENTED TO SELF ONLY, HAS BECOME AGITATED T/O THE DAY, VERY DIFFICULT TO REDIRECT. PT CONITNUOUSLY EXITING BED TRIGGERING BED ALARM, AND CENTRAL MONITORING CALLING. TUBE FEED TO BE RESUMED MOMENTARILY PHOSPHATE IS NOW INFUSING. VSS. PT WITH GOOD URINE OUTPUT T/O THE DAY. SISTER SAMPSON WAS UPDATED TODAY. PT WAS MEDCIATED FOR AGITATION WITH ZYPREXA WHICH HAS PROVIDED LITTLE TO NO CHANGE IN AGITATION. PHYSICAL THERAPY PLACED PT IN CHAIR, PT WAS CONTINUOUSLY EXITING CHAIR AND BECAME A HIGHER RISK OF INJURY WHILE IN CHAIR, PT WAS PUT BACK TO BED, HE TRANSFERED BACK TO BED WITH STEADY GAIT, GAIT BELT AND WALKER WHICH HE SEEMED TO TOLERATE WELL
[2022-04-22 20:53] LABS: Source, Urine Clean Catch
[2022-04-22 21:21] LABS: Appearance, Urine Clear (Clear); Bilirubin, Urine Neg (Neg); Blood, Urine Neg (Neg); Glucose Qualitative, Urine Neg (Neg); Ketones, Urine Neg (Neg); Leukocyte Esterase, Urine Neg (Neg); Nitrite, Urine Neg (Neg); Protein, Urine Neg (Neg); Urobilinogen, Urine NORM (Normal)
[2022-04-22 21:29] LABS: Color, Urine Pale Yellow (P-Yellow)
[2022-04-23 04:25] LABS: Bun/Creatinine Ratio 14.8 (12.0-20.0); Creatinine, Blood 0.88 mg/dL (0.60-1.20); Magnesium, Blood 2.2 mg/dL (1.6-2.4); Phosphorus, Blood 2.8 mg/dL (2.5-4.9); Potassium, Blood 4.1 mmol/L (3.5-5.5)
--- NOTE | 2022-04-23 07:15 | NUR ---
NOC SHIFT SUMMARY PT PULLED OUT DOBHOFF AND POWERGLIDE AT START OF SHIFT. ON-CALL MD NOTIFIED AND PER DR. ALLEN OK TO LEAVE LINES OUT AT THIS TIME. PT W/COMPLAINTS OF R SIDED ABD PAIN. PRNS GIVEN W/ RELIEF. PT SLEPT SOUNDLY, ORIENTED X4 BUT IMPULSIVE AND HALLUCINATING AT TIMES ABOUT THINGS IN THE ROOM. VSS PER PT TREND. R KENNETH W/MINIMAL OUTPUT. UP WITH 1 ASSIST TO BSC OR USING URINAL. FREQUENT URINATION AND COMPLAINTS OF URGENCY OVERNIGHT. URINALYSIS SENT. WILL PASS ON TO DAY RN
--- NOTE | 2022-04-23 12:28 | NUR ---
PT TRANSFERRED TO ROOM 345, ALL BELONGINGS SENT WITH PT. REPORT CALLED TO RECEIVING NURSE.
--- NOTE | 2022-04-23 12:36 | NUR ---
pt here from u
--- NOTE | 2022-04-23 14:40 | NUR ---
spoke to jimmy bansal. zosyn rate to be changed to 30/hr.
--- NOTE | 2022-04-23 14:57 | NUR ---
pt bp 96/72 p [address] chavez, no bolus. he request to call if sbp < 90/xx . no other orders
--- NOTE | 2022-04-23 15:48 | NUR ---
pt friend rain came in to bring new clothes at my request. is taking his old dirty clothes back to wash. he will try to take his personal fannypack home also.
--- NOTE | 2022-04-23 17:43 | NUR ---
PT TRANSFERRED IN FROM PCU TODAY. NO C/O PAIN. SISTER IN FROM [place] AT THIS TIME VISITING WITH HIM. HE IS PLEASANT, ALERT AT TIMES . OFTEN STATES CONFUSING THINGS. KENNETH DRAIN HAS VERY LITTLE S/S FLUID SINCE TRANSFER. REMAINS INTACT. CDI. WE ARE SPOON FEEDING SOME NECTAR LIQUIDS REGULAR INTERVALS. LOW BP, WHICH DR GARAY STATES OKAY UNLESS FALLS BELOW 90/XX. LAST WAS 97/72. NO OTHER CONCERNS NOTED. BED IN LOW POSITION, CALL LITE IN REACH. BED ALARM ON FOR SAFETY.
--- NOTE | 2022-04-24 05:04 | NUR ---
SHIFT SUMMARY 76 YR M ADMITTED ON 04/15/22 FOR PERFORATED DUODENAL ULCER. FULL CODE. NO ACUTE CHANGES THIS SHIFT. PT SLEPT FOR MOST OF SHIFT BUT WAS IMPULSIVE IN GETTING UP ON HIS OWN TO USE THE RESTROOM. HE WAS A&O AND WAS ABLE TO TELL ME WHERE HE WAS AND WHY. HIS KENNETH DRAIN PRODUCED VERY LITTLE DRAINAGE AND DID NOT REQUIRE EMPTYING. PT DOES NOT C/O PAIN OR ANY DISCOMFORT.
--- NOTE | 2022-04-24 16:22 | NUR ---
DR. VALENCIA REMOVED KENNETH DRAIN AT 1505.
--- NOTE | 2022-04-24 19:17 | NUR ---
SHIFT SUMMARY: NO ACUTE EVENTS. KENNETH DRAIN REMOVED BY DR. VALENCIA THIS AFTERNOON. C/O PAIN AND NAUSEA X 1, MEDICATED PER EMAR WITH ADEQUATE RELIEF. TOLERATING PO INTAKE, ABLE TO SWALLOW PILLS WHOLE IN APPLESAUCE. AMBULATING TO BR WITH 1 ASSIST AND FWW, GAIT IS STEADY. HAD VISIT FROM HIS SISTER. NO RESTRAINTS IN USE.
--- NOTE | 2022-04-25 04:42 | NUR ---
PT ORIENTED, ABDOMIN SOFT AND NONTENDER. STERI STRIPS WNL. PT REPORTS NO GAS, ACTIVE BOWEL TONES. PT DOES NOT USE THE CALL LIGHT AND GETS UP SETTING OFF ALARM. PT USES 4WW WITH NO ASSIST, REFUSES SCD'S
[2022-04-25 05:42] LABS: Bun/Creatinine Ratio 11.7 (12.0-20.0); Calcium, Blood 8.2 mg/dL (8.5-10.1); Creatinine, Blood 0.94 mg/dL (0.60-1.20); Magnesium, Blood 2.2 mg/dL (1.6-2.4); Potassium, Blood 3.8 mmol/L (3.5-5.5)
--- NOTE | 2022-04-25 13:15 | NUR ---
THIS LINER REPLACER TRANSFERED CARE OVER TO DOMINICK RN @ 1300. REPORT WAS GIVEN PRIOR TO TRANSFER. PT AOX2 AND COOPERATIVE OF CARE TO DAY. PT DOES NOT USE CALL LIGHT AND IS A STANDBY TO RESTROOM. PT SEEMS TO BE DOING WELL WITH AMBULATION FROM BED TO RESTROOM AND BACK. PT WAS MOVED TO ROOM 342 VIA BED WITH PERSONAL BELONGINGS. NO DISTRESS NOTED.
--- NOTE | 2022-04-25 15:04 | NUR ---
SHIFT SUMMARY 1300 ASSUMED CARE OF PT; TX'D TO RM 342 FROM 345. PT HAS BEEN PLEASANT AND CO-OP WITH CARE. IMPULSIVE WHEN NEEDING TO GO TO BTHRM, BUT WILL WAIT WHEN BED ALARM GOES OFF AND DOES PULL BTHRM CORD WHEN FINISHED. PT IS WEAK AND ONLY SLIGHTLY UNSTEADY; SBA IS NEEDED. PT'S SISTER TO RM TO VISIT EARLIER. PT RESTING QUIETLY BETWEEN GETTING UP TO BTHRM. NO C/O PAIN. MEDS TAKEN WHOLE WITH APPLESAUCE. BED ALARM ON FOR SAFETY. CALL LT IN REACH.
--- NOTE | 2022-04-26 06:08 | NUR ---
SHIFT SUMMARY PATIENT ALERT AND ORIENTED X2. HAD NO COMPLAINTS OF PAIN OR SHORTNESS OF BREATH. NO ACUTE ISSUES NOTED OVERNIGHT. CALL LIGHT WITHIN REACH. REPORT GIVEN TO ONCOMING RN.
[2022-04-26] MEDS ORDERED: AMOCLA875 PO (11:16)
[2022-04-26] MEDS ORDERED: ELIQUIS5 M2 PO (11:17)
[2022-04-26] MEDS ORDERED: Docusate S50 MG/5 ML PO (11:17)
[2022-04-26] MEDS ORDERED: DULCOLAX400 MG/5 M PO (11:18)
[2022-04-26] MEDS ORDERED: VISBIOME 112.51 EACH PO (11:18)
[2022-04-26] MEDS ORDERED: NYSTATIN100000 U10 MT (11:18)
[2022-04-26 11:38] LABS: Influenza A, PCR NEGATIVE (NEGATIVE); Influenza B, PCR NEGATIVE (NEGATIVE); Resp Syncytial Virus, PCR NEGATIVE (NEGATIVE); SARS-Cov-2 (COVID-19) PCR, MMC NEGATIVE (NEGATIVE)
--- NOTE | 2022-04-26 14:16 | NUR ---
SHIFT SUMMARY PT RESTING QUIETLY AT START OF SHIFT. WOKE EASILY FOR CARE. UP TO BTHRM TO VOID WITH 1P SBA. PT IS AMBULATORY, BUT UNSTEADY AT TIMES. PLEASANT AND CO-OP WITH CARE. NO C/O. DR GARAY IN TO SEE PT THIS AM. D/C ORDERS PLACED. [facility] WHEN PROCESS IS COMPLETE. PT'S SISTER IN VISITING. DENIES FURTHER NEEDS AT THIS TIME. BED ALARM ON FOR SAFETY. CALL LT IN REACH.
--- NOTE | 2022-04-27 07:27 | NUR ---
OVERNIGHT PT WITH NO NEW COMPLAINS. PT LOOKING FORWARD TO [facility]. REMAINS IMPULSIVE AND UNSTEADY. BED ALARM ON AT ALL TIMES.
--- NOTE | 2022-04-27 18:33 | NUR ---
SHIFT SUMMARY PT A/O X3; AND COOPERATIVE WITH CARE. PT WAS SUPPOSED [facility] TODAY BUT A BED IS NO LONGER AVAILABLE. PT UNHAPPY ABOUT THIS SITUATION. HE CONTINUES AWAIT SNF PLACEMENT. COGNITIVE EVAL DONE BY OCCUPATIONAL THERAPY TODAY AND RESULTS IN CHART. VSS.
--- NOTE | 2022-04-28 04:58 | NUR ---
SHIFT SUMMARY 76 YR M ADMITTED ON 04/15/22 FOR PERFORATED DUODENAL ULCER. FULL CODE. NO ACUTE CHANGES THIS SHIFT. PT HAS SLEPT FOR ALMOST ALL OF THIS SHIFT AND HAS NO COMPLAINTS. HE IS IMPULSIVE TO GET UP TO THE RESTROOM AND DOES NOT CALL FOR HELP ALTHOUGH HE STATES HE WILL. HE IS FAIRLY STEADY ON HIS FEET BUT IT IS BEST IF HE HAS STAND BY ASSISTANCE. WAITING PLACEMENT AT [place].
[2022-04-28 12:51] LABS: Influenza A, PCR NEGATIVE (NEGATIVE); Influenza B, PCR NEGATIVE (NEGATIVE); Resp Syncytial Virus, PCR NEGATIVE (NEGATIVE); SARS-Cov-2 (COVID-19) PCR, MMC NEGATIVE (NEGATIVE)
--- NOTE | 2022-04-28 14:02 | NUR ---
DISCHARGE SUMMARY PT DISCHARGED TO [facility]. PT WORKED WITH OCCUPATIONAL THERAPY TODAY AND DID WELL. AMBULATES WITH A SBA. NO COMPLAINTS THIS SHIFT. REPORT CALLED TO [facility].
== END 2022-04-28 13:35 | DRG 853 ==
LOC: ER 00:58 → PCU 04:33 → ICUE 04:33 → PCU 06:42 → ICUE 17:37 → PCU 04-17 10:39 → MEDS 04-23 12:42
PROVIDERS: Family Medicine; Internal Medicine; Nurse Practitioner Acute Care; Pharmacist; Student in an Organized Health Care Education/Training Program; Surgery; ADMIT Internal Medicine
PROC: 0DU947Z Supplement Duodenum with Autologous Tissue Substitute, Percutaneous Endoscopic Approach (ICD-10-PCS; 2022-04-15)
PROC: 3E03329 Introduction of Other Anti-infective into Peripheral Vein, Percutaneous Approach (ICD-10-PCS; principal; 2022-04-15 14:30)
DX: A41.9 Sepsis, unspecified organism (principal); G92.8 Other toxic encephalopathy; K26.5 Chronic or unspecified duodenal ulcer with perforation; N17.9 Acute kidney failure, unspecified; Z20.822 Contact with and (suspected) exposure to COVID-19; I48.91 Unspecified atrial fibrillation; E78.5 Hyperlipidemia, unspecified; R65.20 Severe sepsis without septic shock; E87.6 Hypokalemia; I95.9 Hypotension, unspecified; E83.42 Hypomagnesemia; T42.4X5A Adverse effect of benzodiazepines, initial encounter; I10 Essential (primary) hypertension; N40.0 Benign prostatic hyperplasia without lower urinary tract symptoms; Z95.4 Presence of other heart-valve replacement; Z87.891 Personal history of nicotine dependence; Z90.49 Acquired absence of other specified parts of digestive tract; Z79.01 Long term (current) use of anticoagulants; Z79.82 Long term (current) use of aspirin; Z79.899 Other long term (current) drug therapy
CPT/HCPCS: 0241U; 36415; 71045; 71275; 74174; 80048; 80053; 80069; 80162; 80202; 81003; 82947; 83605; 83690; 83735; 84100; 84484; 85025; 85610; 87040; 92526; 92610; 93005; 93010; 94640; 94664; 94760; 94762; 96365; 96375; 96376; 97110; 97116; 97129; 97130; 97162; 97166; 97530; 97535; 99285-25; A9270; C1751; C9113; J1160; J1170; J1885; J2060; J2250; J2270; J2370; J2405; J2543; J2704; J2795; J3010; J3370; J3475; J3480; J7030; J7040; J7060; J7120; Q9967

== ENCOUNTER 2022-05-13 14:25 | Inpatient (IN) | payer OTHER ==
[~2022-05-13] VITALS: Ht 185.4 cm; Wt 63.5 kg
[~2022-05-13 14:25] MED LIST changes: -ALBU2.5V5; +ALBU2.5V5 INH; +AMOCLA875 PO; +COMBIVENT RESPIM4 G1 INH; +DULCOLAX400 MG/5 M PO; +Docusate S50 MG/5 ML PO; +ELIQUIS5 M2 PO; +FLUTICASONE-SA1 EAC9 INH; +FOLI1 PO; +LATA.005SO BOTHEYES; +MIDO5 PO; +NYSTATIN100000 U10 MT; +PRED FORTE5 ML BOTHEYES; +TIMO.5OPSO BOTHEYES; +VISBIOME 112.51 EACH PO
[2022-05-13 15:20] LABS: BASOPHILS ABSOLUTE AUTO 0.09 K/mm3 (0.00-0.23); BASOPHILS PERCENT AUTO 1 % (0-2); EOSINOPHILS ABSOLUTE AUTO 0.07 K/mm3 (0.00-0.68); EOSINOPHILS PERCENT AUTO 1 % (0-6); Hematocrit 34.5 % (37.0-53.0); IMMATURE GRAN ABSOLUTE AUTO 0.05 K/mm3 (0.00-0.10); IMMATURE GRAN PERCENT AUTO 1 % (0-1); LYMPHOCYTES ABSOLUTE AUTO 1.66 K/mm3 (0.84-5.20); LYMPHOCYTES PERCENT AUTO 24 % (21-46); MONOCYTES ABSOLUTE AUTO 0.64 K/mm3 (0.16-1.47); MONOCYTES PERCENT AUTO 9 % (4-13); Mean Corpuscular HGB Conc 31.9 g/dL (31.5-36.5); Mean Corpuscular Volume 88 fL (80-100); Mean Platelet Volume 10.4 fL (9.1-12.4); NEUTROPHILS ABSOLUTE AUTO 4.33 K/mm3 (1.96-9.15); NEUTROPHILS PERCENT AUTO 63 % (41-73); Platelet Count 357 K/mm3 (150-400); RDW Coefficient Variation 19.2 % (11.7-14.2); RDW Standard Deviation 61.4 fL (35.1-46.3); Red Blood Cell Count 3.93 M/mm3 (4.30-5.90); White Blood Cell Count 6.84 K/mm3 (4.00-11.30)
[2022-05-13 15:28] LABS: Albumin, Blood 2.8 g/dL (3.4-5.0); Albumin/Globulin Ratio 0.7 (0.8-1.8); Bilirubin, Total 0.8 mg/dL (0.1-1.0); Bun/Creatinine Ratio 17.9 (12.0-20.0); Calcium, Blood 8.7 mg/dL (8.5-10.1); Creatinine, Blood 0.89 mg/dL (0.60-1.20); Potassium, Blood 4.4 mmol/L (3.5-5.5); Total Protein, Blood 6.8 g/dL (6.4-8.2)
[2022-05-13 18:47] LABS: CPK Creatine Kinase 42 U/L (39-308)
[2022-05-14 02:42] LABS: BASOPHILS ABSOLUTE AUTO 0.08 K/mm3 (0.00-0.23); BASOPHILS PERCENT AUTO 1 % (0-2); EOSINOPHILS ABSOLUTE AUTO 0.09 K/mm3 (0.00-0.68); EOSINOPHILS PERCENT AUTO 2 % (0-6); Hematocrit 32.7 % (37.0-53.0); Hemoglobin 10.3 g/dL (13.5-17.5); IMMATURE GRAN ABSOLUTE AUTO 0.03 K/mm3 (0.00-0.10); IMMATURE GRAN PERCENT AUTO 1 % (0-1); LYMPHOCYTES ABSOLUTE AUTO 1.64 K/mm3 (0.84-5.20); LYMPHOCYTES PERCENT AUTO 29 % (21-46); MONOCYTES PERCENT AUTO 9 % (4-13); Mean Corpuscular HGB 27.5 pg (26.0-34.0); Mean Corpuscular HGB Conc 31.5 g/dL (31.5-36.5); Mean Corpuscular Volume 87 fL (80-100); NEUTROPHILS ABSOLUTE AUTO 3.26 K/mm3 (1.96-9.15); NEUTROPHILS PERCENT AUTO 58 % (41-73); Platelet Count 339 K/mm3 (150-400); RDW Standard Deviation 60.9 fL (35.1-46.3); Red Blood Cell Count 3.75 M/mm3 (4.30-5.90)
[2022-05-14 03:00] LABS: Albumin, Blood 2.5 g/dL (3.4-5.0); Albumin/Globulin Ratio 0.7 (0.8-1.8); Bilirubin, Total 0.7 mg/dL (0.1-1.0); Bun/Creatinine Ratio 16.4 (12.0-20.0); Calcium, Blood 8.4 mg/dL (8.5-10.1); Creatinine, Blood 0.85 mg/dL (0.60-1.20); Globulin, Blood 3.6 g/dL (2.2-4.0); Potassium, Blood 4.2 mmol/L (3.5-5.5); Total Protein, Blood 6.1 g/dL (6.4-8.2)
[2022-05-14 03:05] LABS: CHOL/HDL RATIO 2.4; Cholesterol 137 mg/dL (50-200); HDL Cholesterol 56 mg/dL (>39); LDL/HDL RATIO 1.2; Low Density Lipoprotein Chol 68 mg/dL (0-110); Triglycerides 65 mg/dL (30-160); Very Low Density Lipoprot Chol 13 mg/dL (6-32)
[2022-05-14 03:06] LABS: CPK Creatine Kinase 37 U/L (39-308)
--- NOTE | 2022-05-14 06:06 | NUR ---
SHIFT SUMMARY PATIENT ALERT AND ORIENTED X3. PATIENT SLEPT WELL OVERNIGHT. COMPLAINED OF SOME DISCOMFORT IN HIS ABDOMEN. NO ACUTE ISSUES NOTED OVERNIGHT. CALL LIGHT WITHIN REACH. REPORT GIVEN TO ONCOMING RN.
--- NOTE | 2022-05-14 09:50 | NUR ---
PT SISTER CALLED FOR AN UPDATE. SHE REPORTS PT WAS RECENTLY DISCHARGED FROM [facility] BUT DID NOT GET CLEAR INSTRUCTIONS ON MEDICATIONS. SHE SAID [facility]S BUT ENDED UP AT [facility]. SHE REPORTS PT WAS TAKING BOTH ELIQUIS AND WARFARIN AT HOME. DR SEVILLA AWARE AND PRO TIME ORDERED. WILL GO THROUGH HOME MEDICATION BOTTLES WITH PT WHILE HERE AND NOTIFIED SISTER PT WILL GET A PRINTED LIST OF MEDICATIONS UPON DISCHARGE OF WHAT HE SHOULD BE TAKING AT HOME.
[2022-05-14 11:06] LABS: CPK Creatine Kinase 35 U/L (39-308)
[2022-05-14 11:07] LABS: International Normalized Ratio 1.43; Prothrombin Time Results 14.7 Sec (9.7-11.5)
--- NOTE | 2022-05-14 17:03 | NUR ---
SHIFT SUMMARY- PT A/OX3, FORGETFUL AT TIMES. PT A SBA UP TO BATHROOM, SLIGHTLY UNSTEADY AT TIMES. PT REPORTS MILD ABDOMINAL TENDERNESS WITH PALPATION, PT TOLERATING CLEAR LIQUIDS AND ADVANCED TO FULL LIQUID FOR DINNER. PT HAVING LOOSE STOOLS THIS AFTERNOON AFTER LAXATIVE AND STOOL SOFTENER. LS CLEAR, ON RA. TELE AFIB 110-130'S THIS AM BUT AFTER AM MEDICATIONS PT RATE CONTROLLED AT 79. NO OTHER ACUTE CHANGES THIS SHIFT.
--- NOTE | 2022-05-14 17:24 | NUR ---
PAIN- PT BEGAN HAVING 8/10 CONSTANT SHARP PAIN TO LEFT RIBCAGE AREA. PT MOANING AND GRABBING AT RIBS BUT DOES POINT TO EPIGASTRIC AREA WHEN DESCRIBING PAIN. VSS. DR SEVILLA NOTIFIED OF PAIN AND DIARRHEA. GI PANEL ORDERED, FENTANYL AND LABS. WILL DECREASE PT BACK TO CLEAR LIQUIDS AT THIS TIME.
[2022-05-14 17:38] LABS: BASOPHILS ABSOLUTE AUTO 0.06 K/mm3 (0.00-0.23); BASOPHILS PERCENT AUTO 1 % (0-2); EOSINOPHILS ABSOLUTE AUTO 0.11 K/mm3 (0.00-0.68); EOSINOPHILS PERCENT AUTO 2 % (0-6); Hematocrit 33.7 % (37.0-53.0); Hemoglobin 10.7 g/dL (13.5-17.5); IMMATURE GRAN ABSOLUTE AUTO 0.03 K/mm3 (0.00-0.10); IMMATURE GRAN PERCENT AUTO 0 % (0-1); LYMPHOCYTES ABSOLUTE AUTO 1.51 K/mm3 (0.84-5.20); LYMPHOCYTES PERCENT AUTO 22 % (21-46); MONOCYTES ABSOLUTE AUTO 0.52 K/mm3 (0.16-1.47); MONOCYTES PERCENT AUTO 7 % (4-13); Mean Corpuscular HGB 27.7 pg (26.0-34.0); Mean Corpuscular HGB Conc 31.8 g/dL (31.5-36.5); Mean Corpuscular Volume 87 fL (80-100); Mean Platelet Volume 9.6 fL (9.1-12.4); NEUTROPHILS ABSOLUTE AUTO 4.78 K/mm3 (1.96-9.15); NEUTROPHILS PERCENT AUTO 68 % (41-73); Platelet Count 357 K/mm3 (150-400); RDW Standard Deviation 60.5 fL (35.1-46.3); Red Blood Cell Count 3.86 M/mm3 (4.30-5.90); White Blood Cell Count 7.01 K/mm3 (4.00-11.30)
[2022-05-14 18:55] LABS: CPK Creatine Kinase 43 U/L (39-308)
[2022-05-15 00:03] LABS: Adenovirus F 40/41 Not Detected (NOT DETECT); Astrovirus Not Detected (NOT DETECT); Campylobacter Sp Not Detected (NOT DETECT); Cryptosporidium Not Detected (NOT DETECT); Cyclospora Cayetanensis Not Detected (NOT DETECT); E. Coli O157 Not Detected (NOT DETECT); Entamoeba Histolytica Not Detected (NOT DETECT); Enteroaggregative E. coli-EAEC Not Detected (NOT DETECT); Enteropathogenic E. coli-EPEC Not Detected (NOT DETECT); Enterotoxigenic E. coli-ETEC Not Detected (NOT DETECT); Giardia Lamblia Not Detected (NOT DETECT); Norovirus GI/GII Not Detected (NOT DETECT); Plesiomonas Shigelloides Not Detected (NOT DETECT); Rotavirus A Not Detected (NOT DETECT); Salmonella Sp Not Detected (NOT DETECT); Sapovirus Not Detected (NOT DETECT); Shiga Toxin-prod E. coli-STEC Not Detected (NOT DETECT); Shigella/Enteroin E. coli-EIEC Not Detected (NOT DETECT); Vibrio Cholerae Not Detected (NOT DETECT); Vibrio Sp Not Detected (NOT DETECT); Yersinia Enterocolitica Not Detected (NOT DETECT)
[2022-05-15 05:01] LABS: BASOPHILS ABSOLUTE AUTO 0.07 K/mm3 (0.00-0.23); BASOPHILS PERCENT AUTO 1 % (0-2); EOSINOPHILS ABSOLUTE AUTO 0.11 K/mm3 (0.00-0.68); EOSINOPHILS PERCENT AUTO 1 % (0-6); Hemoglobin 12.2 g/dL (13.5-17.5); IMMATURE GRAN ABSOLUTE AUTO 0.04 K/mm3 (0.00-0.10); IMMATURE GRAN PERCENT AUTO 1 % (0-1); LYMPHOCYTES ABSOLUTE AUTO 2.12 K/mm3 (0.84-5.20); LYMPHOCYTES PERCENT AUTO 27 % (21-46); MONOCYTES ABSOLUTE AUTO 0.53 K/mm3 (0.16-1.47); MONOCYTES PERCENT AUTO 7 % (4-13); Mean Corpuscular HGB 27.6 pg (26.0-34.0); Mean Corpuscular HGB Conc 31.3 g/dL (31.5-36.5); Mean Corpuscular Volume 88 fL (80-100); Mean Platelet Volume 10.5 fL (9.1-12.4); NEUTROPHILS ABSOLUTE AUTO 5.02 K/mm3 (1.96-9.15); NEUTROPHILS PERCENT AUTO 64 % (41-73); Platelet Count 396 K/mm3 (150-400); RDW Standard Deviation 61.2 fL (35.1-46.3); Red Blood Cell Count 4.42 M/mm3 (4.30-5.90); White Blood Cell Count 7.89 K/mm3 (4.00-11.30)
--- NOTE | 2022-05-15 05:32 | NUR ---
SHIFT SUMMARY PATIENT ALERT AND ORIENTED X3. MEDICATED PER EMAR FOR PAIN. HAD NO COMPLAINTS OF SHORTNESS OF BREATH. NO ACUTE ISSUES NOTED OVERNIGHT. CALL LIGHT WITHIN REACH. REPORT GIVEN TO ONCOMING RN.
[2022-05-15 05:34] LABS: Bun/Creatinine Ratio 11.2 (12.0-20.0); Calcium, Blood 8.2 mg/dL (8.5-10.1); Creatinine, Blood 0.89 mg/dL (0.60-1.20); Potassium, Blood 3.5 mmol/L (3.5-5.5)
--- NOTE | 2022-05-15 13:27 | NUR ---
DISCHARGE INSTRUCTIONS REVIEWED WITH PT. IV X2 DC'D INTACT. NO NEW PRESCRIPTIONS. SAT DOWN WITH PATIENT AND WENT OVER IN [facility] HOME MEDICATION LIST AND WENT THROUGH BOTTLES AND REMOVED MEDICATIONS HE NO LONGER TAKES. SISTER SAMPSON UPDATED. PT REQUESTED A TAXI RIDE TO [facility] WHERE HIS TRUCK IT. PT TOLERATED FULL LIQUID DIET WELL. AND AMBULATING TO BATHROOM INDEP. PT REPORTS HE WILL CALL [facility] TOMORROW FOR F/U APPT. PT DC'D HOME VIA TAXI AT 1342.
== END 2022-05-15 13:31 | disposition home or self-care (01) | DRG 440 ==
LOC: ER 14:25 → MEDS 14:26
PROVIDERS: Internal Medicine; Student in an Organized Health Care Education/Training Program; ADMIT Internal Medicine
DX: K85.90 Acute pancreatitis without necrosis or infection, unspecified (principal); I48.91 Unspecified atrial fibrillation; E78.5 Hyperlipidemia, unspecified; I10 Essential (primary) hypertension; N40.0 Benign prostatic hyperplasia without lower urinary tract symptoms; E78.00 Pure hypercholesterolemia, unspecified; K59.00 Constipation, unspecified; Z95.4 Presence of other heart-valve replacement; Z86.718 Personal history of other venous thrombosis and embolism
CPT/HCPCS: 36415; 71046; 71260; 74018; 74177; 80048; 80053; 80061; 82550; 83605; 83690; 83735; 83880; 84145; 84484; 85025; 85379; 85610; 87507; 93005; 93010; 94640; 94760; 96372; 99285-25; A9270; G0378; J1650; J3010; J7030; Q9967

== ENCOUNTER 2022-09-23 13:50 | Inpatient (IN) | payer OTHER ==
[~2022-09-23] VITALS: Ht 185.4 cm; Wt 74.5 kg
[~2022-09-23 13:50] MED LIST changes: +DOC250 PO; +Docusate Sodiu250 MG PO; +Floxin10 ML BOTHEYES; +Isosorbide Mono30 MG PO; -METO100ER PO; +METO50ER PO; +Midodrine HCl2.5 MG PO; +Nitrostat0.4 MG SL; +TIMO.25OPS BOTHEYES
[2022-09-23 15:59] LABS: BASOPHILS ABSOLUTE AUTO 0.04 K/mm3 (0.00-0.23); BASOPHILS PERCENT AUTO 1 % (0-2); EOSINOPHILS ABSOLUTE AUTO 0.03 K/mm3 (0.00-0.68); EOSINOPHILS PERCENT AUTO 1 % (0-6); Hematocrit 34.2 % (37.0-53.0); Hemoglobin 10.3 g/dL (13.5-17.5); IMMATURE GRAN ABSOLUTE AUTO 0.03 K/mm3 (0.00-0.10); IMMATURE GRAN PERCENT AUTO 1 % (0-1); LYMPHOCYTES ABSOLUTE AUTO 0.67 K/mm3 (0.84-5.20); LYMPHOCYTES PERCENT AUTO 12 % (21-46); MONOCYTES PERCENT AUTO 7 % (4-13); Mean Corpuscular HGB 24.3 pg (26.0-34.0); Mean Corpuscular HGB Conc 30.1 g/dL (31.5-36.5); Mean Corpuscular Volume 81 fL (80-100); Mean Platelet Volume 10.3 fL (9.1-12.4); NEUTROPHILS PERCENT AUTO 79 % (41-73); NRBC ABSOLUTE 0.03 K/mm3 (0.00-0.02); NRBC Auto 0.5 /100 WBC (0.0-0.2); Platelet Count 267 K/mm3 (150-400); RDW Coefficient Variation 18.6 % (11.7-14.2); RDW Standard Deviation 53.1 fL (35.1-46.3); Red Blood Cell Count 4.23 M/mm3 (4.30-5.90); White Blood Cell Count 5.57 K/mm3 (4.00-11.30)
[2022-09-23 16:22] LABS: Albumin, Blood 3.3 g/dL (3.4-5.0); Albumin/Globulin Ratio 0.9 (0.8-1.8); Bilirubin, Total 1.8 mg/dL (0.1-1.0); Bun/Creatinine Ratio 32.8 (12.0-20.0); Calcium, Blood 8.9 mg/dL (8.5-10.1); Creatinine, Blood 1.16 mg/dL (0.60-1.20); Globulin, Blood 3.5 g/dL (2.2-4.0); Potassium, Blood 4.8 mmol/L (3.5-5.5); Total Protein, Blood 6.8 g/dL (6.4-8.2)
[2022-09-23 20:36] LABS: Prothrombin Time Results 61.5 Sec (9.7-11.5)
[2022-09-23 20:44] LABS: International Normalized Ratio 6.63
--- NOTE | 2022-09-23 21:30 | NUR ---
ADMISSION PATIENT ARRIVES TO PCU 02 FROM ER. PATIENT SLID OVER TO PCU BED WITH ASSISTANCE OF STAFF. CARDIZEM GTT INFUSING AT 10. PATIENT ALERT AND ORIENTED, ANSWERING QUESTIONS APPROPRIATLEY. BP STABLE, HR AFIB 90-100s. PATIENT TACHYPNEIC AND REPORTS SOB UPON ARRIVING TO ROOM, 3L NC APPLIED WITH O2 SAT LOW TO MID 90s. PATIENT USING URINAL INDEPENDENTLY. PATIENT DOES NOT SHOW SIGNS OF WANTING TO GET UP WITHOUT ASSISTANCE OF STAFF BUT BED ALARM ON FOR SAFETY.
[2022-09-24 04:30] LABS: BASOPHILS ABSOLUTE AUTO 0.03 K/mm3 (0.00-0.23); BASOPHILS PERCENT AUTO 1 % (0-2); EOSINOPHILS ABSOLUTE AUTO 0.03 K/mm3 (0.00-0.68); EOSINOPHILS PERCENT AUTO 1 % (0-6); Hematocrit 34.1 % (37.0-53.0); Hemoglobin 10.4 g/dL (13.5-17.5); IMMATURE GRAN ABSOLUTE AUTO 0.03 K/mm3 (0.00-0.10); IMMATURE GRAN PERCENT AUTO 1 % (0-1); LYMPHOCYTES ABSOLUTE AUTO 0.71 K/mm3 (0.84-5.20); LYMPHOCYTES PERCENT AUTO 14 % (21-46); MONOCYTES ABSOLUTE AUTO 0.52 K/mm3 (0.16-1.47); MONOCYTES PERCENT AUTO 10 % (4-13); Mean Corpuscular HGB Conc 30.5 g/dL (31.5-36.5); Mean Corpuscular Volume 79 fL (80-100); Mean Platelet Volume 10.7 fL (9.1-12.4); NEUTROPHILS ABSOLUTE AUTO 3.88 K/mm3 (1.96-9.15); NEUTROPHILS PERCENT AUTO 75 % (41-73); NRBC ABSOLUTE 0.02 K/mm3 (0.00-0.02); NRBC Auto 0.4 /100 WBC (0.0-0.2); Platelet Count 272 K/mm3 (150-400); RDW Coefficient Variation 18.5 % (11.7-14.2); RDW Standard Deviation 51.3 fL (35.1-46.3); Red Blood Cell Count 4.34 M/mm3 (4.30-5.90)
[2022-09-24 04:47] LABS: Bun/Creatinine Ratio 28.9 (12.0-20.0); Calcium, Blood 8.6 mg/dL (8.5-10.1); Creatinine, Blood 1.28 mg/dL (0.60-1.20)
[2022-09-24 05:00] LABS: Prothrombin Time Results 44.9 Sec (9.7-11.5)
[2022-09-24 05:02] LABS: International Normalized Ratio 4.73
--- NOTE | 2022-09-24 05:51 | NUR ---
SHIFT SUMMARY PATIENT ALERT, ORIENTED x3-4. [place]. VSS, TELE READING AFIB 80s-90s. CARDIZEM GTT ON STANDBY SINCE 0245. 3L NC IN PLACE SINCE ADMISSION, O2 SAT LOW TO MID 90s AND PATIENT STATES "THE OXYGEN ACTUALLY HELPED MY SHORTNESS OF BREATH I HAVE BEEN HAVING". DENIES CHEST PAIN T/O THE SHIFT. PATIENT USING URINAL WITH ASSISTANCE, ADEQUATE OUTPUT. PATIENT ABLE TO MOVE SELF IN BED. NO CHANGES SINCE ADMISSION, WILL REPORT TO DAY SHIFT RN.
[2022-09-24 08:40] LABS: Digoxin (Lanoxin) 0.18 ug/mL (0.80-2.00)
--- NOTE | 2022-09-24 18:05 | NUR ---
DAY SHIFT SUMMARY PT ORIENTED X4 THIS AM, OCASSIONALLY FORGETFUL AND NEEDS REORIENTING TO USE CALL LIGHT. IV LASIX GIVEN, GOOD UOP. VSS PER PT TREND, AFIB IN 80S ON TELEMETRY. PT DOWNGRADED TO MED/SURG WITH TELEMETRY THIS AFTERNOON. WILL PASS ON TO NOC RN.
[2022-09-25 04:24] LABS: BASOPHILS ABSOLUTE AUTO 0.04 K/mm3 (0.00-0.23); BASOPHILS PERCENT AUTO 1 % (0-2); EOSINOPHILS ABSOLUTE AUTO 0.11 K/mm3 (0.00-0.68); EOSINOPHILS PERCENT AUTO 2 % (0-6); Hematocrit 31.2 % (37.0-53.0); Hemoglobin 9.9 g/dL (13.5-17.5); IMMATURE GRAN ABSOLUTE AUTO 0.02 K/mm3 (0.00-0.10); IMMATURE GRAN PERCENT AUTO 0 % (0-1); LYMPHOCYTES PERCENT AUTO 13 % (21-46); MONOCYTES ABSOLUTE AUTO 0.55 K/mm3 (0.16-1.47); MONOCYTES PERCENT AUTO 9 % (4-13); Mean Corpuscular HGB 24.4 pg (26.0-34.0); Mean Corpuscular HGB Conc 31.7 g/dL (31.5-36.5); Mean Corpuscular Volume 77 fL (80-100); NEUTROPHILS ABSOLUTE AUTO 4.62 K/mm3 (1.96-9.15); NEUTROPHILS PERCENT AUTO 75 % (41-73); Platelet Count 251 K/mm3 (150-400); RDW Standard Deviation 49.7 fL (35.1-46.3); Red Blood Cell Count 4.05 M/mm3 (4.30-5.90); White Blood Cell Count 6.14 K/mm3 (4.00-11.30)
[2022-09-25 04:45] LABS: Albumin, Blood 2.8 g/dL (3.4-5.0); Anion Gap 6 mmol/L (6-16); Blood Urea Nitrogen 34 mg/dL (8-24); Bun/Creatinine Ratio 27.9 (12.0-20.0); CO2, Blood 28 mmol/L (21-32); Calcium, Blood 8.2 mg/dL (8.5-10.1); Chloride, Blood 110 mmol/L (98-108); Creatinine, Blood 1.22 mg/dL (0.60-1.20); Glomerular Filtration Rate 61 (60-); Glucose, Blood 94 mg/dL (70-99); Phosphorus, Blood 3.3 mg/dL (2.5-4.9); Potassium, Blood 3.1 mmol/L (3.5-5.5); Sodium, Blood 144 mmol/L (136-145)
[2022-09-25 04:52] LABS: Prothrombin Time Results 47.9 Sec (9.7-11.5)
[2022-09-25 04:56] LABS: International Normalized Ratio 5.07
--- NOTE | 2022-09-25 13:00 | NUR ---
PT ARRIVED TO THE MEDICLA FLOOR FROM PCU VIA WHEELCHAIR. PT IS A/OX3. PT ORIENTED TO THE ROOM LAYOUT AND CALL SYSTEM. PT IS UP AMBULATING IN THE ROOM UNASSISTED STEADY ON HIS FEET. PT APPEARS TO BE BREATHING EASILY ON RA AT THIS TIME
--- NOTE | 2022-09-25 18:19 | NUR ---
PT IS A/OX3, PLEASANT AND COOPERATIVE. PT IS UP IND IN HIS ROOM. PT APPEARS TO BE BREATHING EASILYON RA AT THIS TIME. THE PT DENIED ANY PAIN, N/V OR SOB. CALL LIGHT IN REACH. WILL CONTINUE TO MONITOR AND ASSESS FOR CHANGES
--- NOTE | 2022-09-26 03:49 | NUR ---
SHIFT SUMMARY NO OVERNIGHT EVENTS. PT REMAINING IN AFIB ON TELE HR BETWEEN 90-100'S. DENIES ANY CP/SOB/DIZZINESS. PT ORIENTED X4, FORGETFUL AT TIMES. AMBULATING INDEPENDENTLY TO BATHROOM. ABLE TO MAKE NEEDS KNOWN, CALL LIGHT IN REACH.
[2022-09-26 06:22] LABS: BASOPHILS ABSOLUTE AUTO 0.04 K/mm3 (0.00-0.23); BASOPHILS PERCENT AUTO 1 % (0-2); EOSINOPHILS ABSOLUTE AUTO 0.07 K/mm3 (0.00-0.68); EOSINOPHILS PERCENT AUTO 1 % (0-6); Hematocrit 32.4 % (37.0-53.0); Hemoglobin 10.2 g/dL (13.5-17.5); IMMATURE GRAN ABSOLUTE AUTO 0.03 K/mm3 (0.00-0.10); IMMATURE GRAN PERCENT AUTO 0 % (0-1); LYMPHOCYTES ABSOLUTE AUTO 0.41 K/mm3 (0.84-5.20); LYMPHOCYTES PERCENT AUTO 5 % (21-46); MONOCYTES ABSOLUTE AUTO 0.46 K/mm3 (0.16-1.47); MONOCYTES PERCENT AUTO 6 % (4-13); Mean Corpuscular HGB 24.1 pg (26.0-34.0); Mean Corpuscular HGB Conc 31.5 g/dL (31.5-36.5); Mean Corpuscular Volume 77 fL (80-100); Mean Platelet Volume 10.1 fL (9.1-12.4); NEUTROPHILS ABSOLUTE AUTO 6.74 K/mm3 (1.96-9.15); NEUTROPHILS PERCENT AUTO 87 % (41-73); Platelet Count 244 K/mm3 (150-400); RDW Coefficient Variation 17.9 % (11.7-14.2); RDW Standard Deviation 48.7 fL (35.1-46.3); Red Blood Cell Count 4.23 M/mm3 (4.30-5.90); White Blood Cell Count 7.75 K/mm3 (4.00-11.30)
[2022-09-26 06:41] LABS: Albumin, Blood 2.9 g/dL (3.4-5.0); Albumin/Globulin Ratio 0.8 (0.8-1.8); Bilirubin, Direct 0.6 mg/dL (0.0-0.3); Bilirubin, Indirect 1.4 mg/dL (0.1-0.7); Bun/Creatinine Ratio 26.8 (12.0-20.0); Calcium, Blood 8.3 mg/dL (8.5-10.1); Creatinine, Blood 1.12 mg/dL (0.60-1.20); Globulin, Blood 3.5 g/dL (2.2-4.0); Phosphorus, Blood 2.5 mg/dL (2.5-4.9); Potassium, Blood 3.2 mmol/L (3.5-5.5); Total Protein, Blood 6.4 g/dL (6.4-8.2)
[2022-09-26 06:49] LABS: International Normalized Ratio 3.42; Prothrombin Time Results 33.1 Sec (9.7-11.5)
--- NOTE | 2022-09-26 14:29 | NUR ---
PT DC'd HOME BY TAXI. SURFACE GRINDER TENDER SET UP TAXI RIDE FOR PT. DISCHARGE PACKET AND EDUCATION MATERIAL EXPLAINED TO PT. PT VERBAILZED NO NEW QUESTIONS OR CONCERNS. IV AND TELE DC'd. BELONGINGS SENT HOME WITH PT. PT TAKEN BY WHEELCHAIR TO WAITING TAXI.
== END 2022-09-26 14:04 | disposition home or self-care (01) | DRG 291 ==
LOC: ER 13:50 → MEDS 18:21 → ERHOLD 18:21 → PCU 21:08 → MEDS 09-25 12:54
PROVIDERS: Family Medicine; Student in an Organized Health Care Education/Training Program; ADMIT Hospitalist
DX: I11.0 Hypertensive heart disease with heart failure (principal); I50.23 Acute on chronic systolic (congestive) heart failure; I48.91 Unspecified atrial fibrillation; I27.20 Pulmonary hypertension, unspecified; I07.1 Rheumatic tricuspid insufficiency; R79.1 Abnormal coagulation profile; E87.6 Hypokalemia; K21.9 Gastro-esophageal reflux disease without esophagitis; R94.5 Abnormal results of liver function studies; N40.0 Benign prostatic hyperplasia without lower urinary tract symptoms; D63.8 Anemia in other chronic diseases classified elsewhere; K76.1 Chronic passive congestion of liver; R79.89 Other specified abnormal findings of blood chemistry; R00.0 Tachycardia, unspecified; E78.00 Pure hypercholesterolemia, unspecified; Z98.890 Other specified postprocedural states; Z90.49 Acquired absence of other specified parts of digestive tract; Z95.2 Presence of prosthetic heart valve; Z23 Encounter for immunization; Z79.01 Long term (current) use of anticoagulants; Z79.899 Other long term (current) drug therapy; Z79.52 Long term (current) use of systemic steroids; Z79.51 Long term (current) use of inhaled steroids; Z86.718 Personal history of other venous thrombosis and embolism; Z87.891 Personal history of nicotine dependence; Z79.2 Long term (current) use of antibiotics
CPT/HCPCS: 36415; 71045; 80048; 80053; 80069; 80162; 82248; 83735; 83880; 84100; 84443; 84484; 85025; 85610; 90686; 93005; 93010; 94640; 94664; 94760; 96365; 96366; 96375; 96376; 99285-25; A9270; J1940

== ENCOUNTER 2022-10-13 16:53 | Emergency (ER) | payer OTHER ==
[~2022-10-13] VITALS: Ht 185.4 cm; Wt 68.0 kg
[2022-10-13 17:23] LABS: Source, Urine Voided
[2022-10-13 17:27] LABS: Appearance, Urine Hazy (Clear); Bilirubin, Urine Neg (Neg); Blood, Urine 3+ (Neg); Color, Urine Yellow (P-Yellow); Glucose Qualitative, Urine Neg (Neg); Ketones, Urine Neg (Neg); Leukocyte Esterase, Urine 3+ (Neg); Nitrite, Urine Neg (Neg); Protein, Urine 3+ (Neg); Specific Gravity, Urine 1.015 (1.003-1.022); Urobilinogen, Urine NORM (Normal)
[2022-10-13 17:34] LABS: White Blood Cells, Urine 50-100 /hpf (0-5)
[2022-10-13 17:35] LABS: Bacteria Many /hpf; Hyaline Casts 0-2 /lpf (0-2); Squamous Epithelial Cells Not Seen /hpf (Few)
[2022-10-13 18:28] LABS: BASOPHILS ABSOLUTE AUTO 0.04 K/mm3 (0.00-0.23); BASOPHILS PERCENT AUTO 1 % (0-2); EOSINOPHILS ABSOLUTE AUTO 0.06 K/mm3 (0.00-0.68); EOSINOPHILS PERCENT AUTO 1 % (0-6); Hematocrit 30.1 % (37.0-53.0); Hemoglobin 9.4 g/dL (13.5-17.5); IMMATURE GRAN ABSOLUTE AUTO 0.02 K/mm3 (0.00-0.10); IMMATURE GRAN PERCENT AUTO 0 % (0-1); LYMPHOCYTES ABSOLUTE AUTO 0.72 K/mm3 (0.84-5.20); LYMPHOCYTES PERCENT AUTO 13 % (21-46); MONOCYTES ABSOLUTE AUTO 0.42 K/mm3 (0.16-1.47); MONOCYTES PERCENT AUTO 8 % (4-13); Mean Corpuscular HGB 24.1 pg (26.0-34.0); Mean Corpuscular HGB Conc 31.2 g/dL (31.5-36.5); Mean Corpuscular Volume 77 fL (80-100); Mean Platelet Volume 9.4 fL (9.1-12.4); NEUTROPHILS ABSOLUTE AUTO 4.22 K/mm3 (1.96-9.15); NEUTROPHILS PERCENT AUTO 77 % (41-73); Platelet Count 332 K/mm3 (150-400); RDW Coefficient Variation 19.9 % (11.7-14.2); RDW Standard Deviation 54.7 fL (35.1-46.3); White Blood Cell Count 5.48 K/mm3 (4.00-11.30)
[2022-10-13 18:31] LABS: Magnesium, Blood 2.2 mg/dL (1.6-2.4)
[2022-10-13 18:33] LABS: Thyroid Stimulating Hormone 3.79 uIU/mL (0.360-4.800)
[2022-10-13 18:52] LABS: Albumin, Blood 2.9 g/dL (3.4-5.0); Albumin/Globulin Ratio 0.8 (0.8-1.8); Bun/Creatinine Ratio 18.3 (12.0-20.0); Calcium, Blood 8.5 mg/dL (8.5-10.1); Creatinine, Blood 1.2 mg/dL (0.60-1.20); Globulin, Blood 3.8 g/dL (2.2-4.0); Potassium, Blood 3.8 mmol/L (3.5-5.5); Total Protein, Blood 6.7 g/dL (6.4-8.2)
[2022-10-13 19:38] LABS: Influenza A, PCR NEGATIVE (NEGATIVE); Influenza B, PCR NEGATIVE (NEGATIVE); Resp Syncytial Virus, PCR NEGATIVE (NEGATIVE)
[2022-10-13 19:43] LABS: SARS-Cov-2 (COVID-19) PCR, MMC POSITIVE (NEGATIVE)
[2022-10-13 19:50] LABS: International Normalized Ratio 2.77; Prothrombin Time Results 27.2 Sec (9.7-11.5)
[2022-10-13] MEDS ORDERED: CEPH500 PO (21:04)
== END 2022-10-13 21:46 | disposition home or self-care (01) ==
LOC: ER 16:53
PROVIDERS: Emergency Medicine; Student in an Organized Health Care Education/Training Program
DX: N39.0 Urinary tract infection, site not specified (principal); U07.1 COVID-19; I48.91 Unspecified atrial fibrillation; I11.0 Hypertensive heart disease with heart failure; I50.9 Heart failure, unspecified; Z79.899 Other long term (current) drug therapy; Z79.01 Long term (current) use of anticoagulants
CPT/HCPCS: 0241U; 36415; 74177; 80053; 80162; 81001; 83690; 83735; 83880; 84443; 84484; 85025; 85610; 87077; 87086; 87186; 93005; 93010; J0696; Q9967

== ENCOUNTER 2022-11-05 12:11 | Emergency (ER) | payer OTHER ==
[~2022-11-05] VITALS: Ht 185.4 cm; Wt 65.8 kg
[~2022-11-05 12:11] MED LIST changes: +CEPH500 PO
[2022-11-05 12:31] LABS: BASOPHILS ABSOLUTE AUTO 0.03 K/mm3 (0.00-0.23); BASOPHILS PERCENT AUTO 1 % (0-2); EOSINOPHILS ABSOLUTE AUTO 0.03 K/mm3 (0.00-0.68); EOSINOPHILS PERCENT AUTO 1 % (0-6); Hemoglobin 9.3 g/dL (13.5-17.5); IMMATURE GRAN ABSOLUTE AUTO 0.02 K/mm3 (0.00-0.10); IMMATURE GRAN PERCENT AUTO 0 % (0-1); LYMPHOCYTES ABSOLUTE AUTO 0.52 K/mm3 (0.84-5.20); LYMPHOCYTES PERCENT AUTO 9 % (21-46); MONOCYTES ABSOLUTE AUTO 0.42 K/mm3 (0.16-1.47); MONOCYTES PERCENT AUTO 7 % (4-13); Mean Corpuscular HGB 24.2 pg (26.0-34.0); Mean Corpuscular Volume 78 fL (80-100); NEUTROPHILS ABSOLUTE AUTO 4.87 K/mm3 (1.96-9.15); NEUTROPHILS PERCENT AUTO 83 % (41-73); Platelet Count 302 K/mm3 (150-400); RDW Coefficient Variation 21.8 % (11.7-14.2); RDW Standard Deviation 60.8 fL (35.1-46.3); Red Blood Cell Count 3.84 M/mm3 (4.30-5.90); White Blood Cell Count 5.89 K/mm3 (4.00-11.30)
[2022-11-05 12:47] LABS: Albumin, Blood 2.9 g/dL (3.4-5.0); Albumin/Globulin Ratio 0.7 (0.8-1.8); Bilirubin, Total 1.7 mg/dL (0.1-1.0); Bun/Creatinine Ratio 19.8 (12.0-20.0); Calcium, Blood 8.4 mg/dL (8.5-10.1); Creatinine, Blood 1.16 mg/dL (0.60-1.20); Globulin, Blood 4.2 g/dL (2.2-4.0); Potassium, Blood 4.4 mmol/L (3.5-5.5); Total Protein, Blood 7.1 g/dL (6.4-8.2)
[2022-11-05 13:08] LABS: Digoxin (Lanoxin) 0.33 ug/mL (0.80-2.00)
[2022-11-05 13:50] LABS: International Normalized Ratio 3.58; Prothrombin Time Results 34.6 Sec (9.7-11.5)
== END 2022-11-05 19:20 | disposition home or self-care (01) ==
LOC: ER 12:11
PROVIDERS: Physician Assistant
DX: R07.9 Chest pain, unspecified (principal); I48.91 Unspecified atrial fibrillation; I12.9 Hypertensive chronic kidney disease with stage 1 through stage 4 chronic kidney disease, or unspecified chronic kidney disease; I50.20 Unspecified systolic (congestive) heart failure; Z79.899 Other long term (current) drug therapy; Z79.01 Long term (current) use of anticoagulants
CPT/HCPCS: 71045; 71260; 80053; 80162; 83880; 84484; 85025; 85610; 93005; 93010; J1885; Q9967

== ENCOUNTER 2022-12-21 14:49 | Inpatient (IN) | payer OTHER ==
[~2022-12-21] VITALS: Ht 185.4 cm; Wt 61.5 kg
[2022-12-21 15:22] LABS: BASOPHILS ABSOLUTE AUTO 0.04 K/mm3 (0.00-0.23); BASOPHILS PERCENT AUTO 1 % (0-2); EOSINOPHILS ABSOLUTE AUTO 0.02 K/mm3 (0.00-0.68); EOSINOPHILS PERCENT AUTO 0 % (0-6); Hemoglobin 11.2 g/dL (13.5-17.5); IMMATURE GRAN ABSOLUTE AUTO 0.03 K/mm3 (0.00-0.10); IMMATURE GRAN PERCENT AUTO 1 % (0-1); LYMPHOCYTES ABSOLUTE AUTO 0.56 K/mm3 (0.84-5.20); LYMPHOCYTES PERCENT AUTO 12 % (21-46); MONOCYTES ABSOLUTE AUTO 0.44 K/mm3 (0.16-1.47); MONOCYTES PERCENT AUTO 10 % (4-13); Mean Corpuscular HGB 24.5 pg (26.0-34.0); Mean Corpuscular HGB Conc 31.1 g/dL (31.5-36.5); Mean Corpuscular Volume 79 fL (80-100); Mean Platelet Volume 10.2 fL (9.1-12.4); NEUTROPHILS ABSOLUTE AUTO 3.52 K/mm3 (1.96-9.15); NEUTROPHILS PERCENT AUTO 76 % (41-73); Platelet Count 333 K/mm3 (150-400); RDW Coefficient Variation 21.1 % (11.7-14.2); RDW Standard Deviation 59.1 fL (35.1-46.3); Red Blood Cell Count 4.57 M/mm3 (4.30-5.90); White Blood Cell Count 4.61 K/mm3 (4.00-11.30)
[2022-12-21 15:38] LABS: Albumin, Blood 3.1 g/dL (3.4-5.0); Albumin/Globulin Ratio 0.8 (0.8-1.8); Bun/Creatinine Ratio 23.3 (12.0-20.0); Creatinine, Blood 1.16 mg/dL (0.60-1.20); Potassium, Blood 4.3 mmol/L (3.5-5.5); Total Protein, Blood 7.1 g/dL (6.4-8.2)
[2022-12-21 17:49] LABS: Influenza A, PCR NEGATIVE (NEGATIVE); Influenza B, PCR NEGATIVE (NEGATIVE); Resp Syncytial Virus, PCR NEGATIVE (NEGATIVE); SARS-Cov-2 (COVID-19) PCR, MMC NEGATIVE (NEGATIVE)
[2022-12-21 18:12] LABS: Source, Urine Clean Catch
[2022-12-21 18:16] LABS: Appearance, Urine Clear (Clear); Bilirubin, Urine Neg (Neg); Blood, Urine Neg (Neg); Color, Urine Amber (P-Yellow); Glucose Qualitative, Urine Neg (Neg); Ketones, Urine 1+ (Neg); Leukocyte Esterase, Urine Neg (Neg); Nitrite, Urine Neg (Neg); Protein, Urine 3+ (Neg); Urobilinogen, Urine 1+ (Normal)
[2022-12-21 18:31] LABS: Bacteria Mod /hpf; Hyaline Casts 0-2 /lpf (0-2); Mucus Mod (0-Heavy); Red Blood Cells, Urine 0-2 /hpf (0-2); Squamous Epithelial Cells Rare /hpf (Few)
--- NOTE | 2022-12-21 22:17 | NUR ---
ADMIT RECEIVED FROM ER. AWAKE AND ALERT. ORIENTED TO SELF AND TO THE FACT THAT HE IS IN THE HOSPITAL. STATES THAT IT IS 1973. CONFUSED CONVERSATION. FORGETFUL AND IMPULSIVE. LEFT EYE IS REDDENED. LEFT PUPIL IS 4MM, RIGHT IS 5MM. ALL FILM MAKER EQUAL BILATERALLY. GAIT IS UNSTEADY. REPOSITIONS SELF IN BED. MONITOR SHOWS AFIB WITH RVR, RATE 90s. BP STABLE. O2 4LNC. SEE ADMIT ASSESSMENT FOR FULL ASSESSMENT.
[2022-12-21 23:27] LABS: International Normalized Ratio 3.38; Prothrombin Time Results 32.8 Sec (9.7-11.5)
[2022-12-22 04:24] LABS: BASOPHILS ABSOLUTE AUTO 0.03 K/mm3 (0.00-0.23); BASOPHILS PERCENT AUTO 1 % (0-2); EOSINOPHILS ABSOLUTE AUTO 0.07 K/mm3 (0.00-0.68); EOSINOPHILS PERCENT AUTO 2 % (0-6); Hematocrit 34.1 % (37.0-53.0); Hemoglobin 10.7 g/dL (13.5-17.5); IMMATURE GRAN ABSOLUTE AUTO 0.02 K/mm3 (0.00-0.10); IMMATURE GRAN PERCENT AUTO 0 % (0-1); LYMPHOCYTES ABSOLUTE AUTO 0.52 K/mm3 (0.84-5.20); LYMPHOCYTES PERCENT AUTO 11 % (21-46); MONOCYTES ABSOLUTE AUTO 0.46 K/mm3 (0.16-1.47); MONOCYTES PERCENT AUTO 10 % (4-13); Mean Corpuscular HGB Conc 31.4 g/dL (31.5-36.5); Mean Corpuscular Volume 77 fL (80-100); Mean Platelet Volume 9.6 fL (9.1-12.4); NEUTROPHILS ABSOLUTE AUTO 3.63 K/mm3 (1.96-9.15); NEUTROPHILS PERCENT AUTO 77 % (41-73); Platelet Count 258 K/mm3 (150-400); RDW Coefficient Variation 20.8 % (11.7-14.2); RDW Standard Deviation 56.6 fL (35.1-46.3); Red Blood Cell Count 4.45 M/mm3 (4.30-5.90); White Blood Cell Count 4.73 K/mm3 (4.00-11.30)
[2022-12-22 04:42] LABS: International Normalized Ratio 3.77
[2022-12-22 06:11] LABS: Prothrombin Time Results 36.3 Sec (9.7-11.5)
--- NOTE | 2022-12-22 06:43 | NUR ---
SHIFT SUMMARY NO ACUTE CHANGES DURING NOC. CONTINUES TO BE CONFUSED AND DISORIENTED. ORIENTED TO SELF AND OCCASIONALLY TO PLACE. FOLLOWS SIMPLE COMMANDS. FORGETFUL AND IMPULSIVE. PLACED IN A KAYCEE VEST RESTRAINT D/T CONTINUED ATTEMPTS TO CLIMB OUT OF BED. GAIT IS UNSTEADY. USES URINAL WITH ASSIST. VOIDED 3075MLS URINE THIS SHIFT. INCONTINENT OF URINE X 1- ATTENDS IN PLACE. SWALLOWS WITHOUT DIFFICULTY. MONITOR SHOWS AFIB, RATE 80s-110s. BP STABLE. O2 AT 4L NC. RESPIRATIONS EVEN AND UNLABORED AT REST. DYSPNEA NOTED WITH EXERTION. WILL REPORT TO ONCOMING RN WHEN AVAILABLE.
--- NOTE | 2022-12-22 17:52 | NUR ---
SHIFT SUMMARY PATIENT CONFUSED THROUGHOUT SHIFT. ORIENTED TO SELF, ABLE TO FOLLOW DIRECTIONS, REDIRECTS EASILY. DOESN'T CALL, ATTEMPTS TO GET OUT OF BED FREQUENTLY. WEAK, UNSTEADY, 1 ASSIST TO TRANSFER TO BSC. IV LASIX, FREQUENT URINATION, ATTENDS CHANGED PRN, CONDOM CATH PATENT AND DRAINING. FREQUENT LIQUID SMALL BOWEL MOVEMENTS, SOME IN ATTENDS, SOME IN BSC. KAYCEE VEST IN PLACE THROUGHOUT SHIFT FOR HIGH FALL RISK. ROUTINE IV ABX. SPEECH EVAL RECOMMENDS SOFT BIT SIZE, THIN LIQUIDS, PILLS WHOLE WITH WATER. NEW POWERGLIDE PLACED THIS SHIFT. POSITIVE BLOOD CULTURE, GRAM POSITIVE COCCI IN CLUSTERS, VANCO STARTED. O2 WEANED TO RA, WILL CONTINUE TO MONITOR.
[2022-12-22 18:48] LABS: Anion Gap 6 mmol/L (6-16); Blood Urea Nitrogen 28 mg/dL (8-24); CO2, Blood 25 mmol/L (21-32); Calcium, Blood 8.7 mg/dL (8.5-10.1); Chloride, Blood 115 mmol/L (98-108); Creatinine, Blood 1.27 mg/dL (0.60-1.20); Glomerular Filtration Rate 58 (60-); Glucose, Blood 96 mg/dL (70-99); Magnesium, Blood 2.8 mg/dL (1.6-2.4); Phosphorus, Blood 4.4 mg/dL (2.5-4.9); Potassium, Blood 4.2 mmol/L (3.5-5.5); Sodium, Blood 146 mmol/L (136-145); Thyroxine (T4) 6.9 ug/dL (4.5-12.1)
--- NOTE | 2022-12-23 04:32 | NUR ---
ATTEMPTING OOB SEVERAL TIMES, KAYCEE VEST ON FOR PATIENT SAFETY . TWO ATTEMPTS FOR MAINTAINING CONDOM CATH FOR ACCURATE I&O, BUT PATIENT KEPT PULLING THEM OFF. INCONTINENT SEVERAL TIMES THROUGHOUT THE NIGHT, CONSEQUENTLY I&0 WILL BE VERY INACCURATE OVERNIGHT, TELE A FIB/FLUTTER 90'S-110. SPOKE WITH RESIDENT WHO GAVE ORDER TO RESUME DIGOXIN AND TOPROL XL DAILY.
[2022-12-23 06:41] LABS: Hematocrit 30.9 % (37.0-53.0); Hemoglobin 9.9 g/dL (13.5-17.5); Mean Corpuscular HGB 24.3 pg (26.0-34.0); Mean Corpuscular Volume 76 fL (80-100); Mean Platelet Volume 10.7 fL (9.1-12.4); Platelet Count 253 K/mm3 (150-400); RDW Coefficient Variation 20.2 % (11.7-14.2); RDW Standard Deviation 54.8 fL (35.1-46.3); Red Blood Cell Count 4.07 M/mm3 (4.30-5.90); White Blood Cell Count 4.72 K/mm3 (4.00-11.30)
[2022-12-23 06:48] LABS: Albumin, Blood 2.7 g/dL (3.4-5.0); Anion Gap 6 mmol/L (6-16); Blood Urea Nitrogen 23 mg/dL (8-24); Bun/Creatinine Ratio 19.2 (12.0-20.0); CO2, Blood 31 mmol/L (21-32); Calcium, Blood 8.2 mg/dL (8.5-10.1); Chloride, Blood 109 mmol/L (98-108); Glomerular Filtration Rate 62 (60-); Glucose, Blood 88 mg/dL (70-99); Phosphorus, Blood 3.6 mg/dL (2.5-4.9); Potassium, Blood 2.6 mmol/L (3.5-5.5); Sodium, Blood 146 mmol/L (136-145)
[2022-12-23 07:10] LABS: Prothrombin Time Results 43.3 Sec (9.7-11.5)
[2022-12-23 07:47] LABS: International Normalized Ratio 4.55
--- NOTE | 2022-12-23 18:22 | NUR ---
SHIFT SUMMARY PATIENT CONFUSED THROUGHOUT DAY BUT PLEASANT AND COOPERATIVE. ABLE TO HAVE A COHERENT CONVERSATION AND MAKE NEEDS KNOWN, DIFFICULTY STATING THE DATE, LOCATION, AND HOME ADDRESS. UNSURE WHY HE IS IN HOSPITAL. DOES NOT CALL AND ATTEMPTS TO GET UP WITHOUT HELP. BED ALARM ON. RESTRAINT ORDER ACTIVE UNTIL 12/24/22 AT 0800. TOLERATES KAYCEE, DOES NOT PULL. SEEN BY PT/OT. UP TO CHAIR AND AMBULATED IN [place] WITH FWW, GB, AND 1 PERSON ASSIST. ROUTINE IV ABX, LAZIX. CONDOM CATH PATENT DRAINING CLEAR YELLOW URINE. AFIB WITH TACHY AT TIMES ON TELE. RATE CONTROLLED WITH METOPROLOL AND DIG. TOLERATING REG CARDIAC DIET. K-RIDER THIS SHIFT FOR KCL 2.6.
--- NOTE | 2022-12-24 05:21 | NUR ---
SHIFT SUMMARY: ORIENTED TO SELF ONLY. FOLLOWS DIRECTIONS BUT IS SLOW TO REACT. RESPIRATIONS EVEN AND UNLABORED WITH SATS IN MID 90'S ON RA. VOIDING LARGE AMOUNTS OF PALE YELLOW, CLEAR URINE WITH CONDUM CATHETER. KAYCEE VEST REMAINS IN PLACE DUE TO ATTEMPTING TO GET OUT OF BED, REDIRECTABLE. VITAL SIGNS STABLE THROUGHOUT NIGHT. NO ACUTE CHANGES NOTED AT THIS TIME.
[2022-12-24 05:32] LABS: International Normalized Ratio 3.53; Prothrombin Time Results 34.1 Sec (9.7-11.5)
[2022-12-24 05:54] LABS: Albumin, Blood 2.6 g/dL (3.4-5.0); Albumin/Globulin Ratio 0.6 (0.8-1.8); Bilirubin, Total 1.5 mg/dL (0.1-1.0); Bun/Creatinine Ratio 17.1 (12.0-20.0); Calcium, Blood 8.1 mg/dL (8.5-10.1); Creatinine, Blood 1.17 mg/dL (0.60-1.20); Globulin, Blood 4.1 g/dL (2.2-4.0); Magnesium, Blood 2.2 mg/dL (1.6-2.4); Potassium, Blood 2.9 mmol/L (3.5-5.5); Total Protein, Blood 6.7 g/dL (6.4-8.2)
--- NOTE | 2022-12-24 10:15 | NUR ---
AM NOTE: PATIENT ALERT TO SELF AND ABLE TO TELL ME HE IS IN A HOSPITAL. FORGETFULL AND SLOW TO SPEAK. DENIES N/T. OVERAL WEAK. ONE PERSON ASSIST WITH FWW AND GAIT BELT. BED ALARM IN PLACE. KAYCEE VEST REMOVED THIS AM. ON ROOM AIR SATING ABOVE 95%. LUNGS SOUNDING CLEAR AND DIM. TELE SHOWING AFIB WITH PVC'S. HR 80-90'S. BP STABLE. PATIENT COMPLAINS OF 6/10 SHARP SHOOTING PAIN, POINT TO HIS LEFT UPPER QUADRANT/CHEST. EKG DONE AND IN CHART. DR. SANCHEZ CALLED AND UPDATED. PO TYLENOL GIVEN. CHEST XRAY COMPLETED. PAIN REDUCING OVER TIME THIS AM. DR. SANCHEZ IN TO SEE PATIENT. SPEECH THERAPY IN THIS AM. ABX INFUSING. CONDOM CATH IN PLACE. NOT USING CALL LIGHT TO CALL. BED ALARM REMAINS ON. WILL CONTINUE TO MONITOR.
--- NOTE | 2022-12-24 18:23 | NUR ---
SHIFT SUMMARY: NO ACUTE CHANGES. PATIENT MEDICAL STATUS WITH NO TELE. WORKED WITH PT TODAY AND UP TO CHAIR FOR MEALS. UP TO BATHROOM WITH ONE PERSON ASSIST. 2 LOOSE BOWEL MOVEMENTS TODAY. CONDOM CATH CONTINUES TO DRAIN CLEAR/YELLOW URINE. BED BATH GIVEN. REMAINS ON ROOM AIR. CHEST/LUQ PAIN RESOLVED FROM THIS MORNING. BED ALARM IN PLACE. ALL VITAL SIGNS REMAIN STABLE.
[2022-12-25 04:29] LABS: Hematocrit 30.8 % (37.0-53.0); Hemoglobin 9.9 g/dL (13.5-17.5); Mean Corpuscular HGB 24.4 pg (26.0-34.0); Mean Corpuscular HGB Conc 32.1 g/dL (31.5-36.5); Mean Corpuscular Volume 76 fL (80-100); Mean Platelet Volume 9.9 fL (9.1-12.4); Platelet Count 240 K/mm3 (150-400); RDW Coefficient Variation 19.9 % (11.7-14.2); RDW Standard Deviation 53.5 fL (35.1-46.3); Red Blood Cell Count 4.06 M/mm3 (4.30-5.90); White Blood Cell Count 5.42 K/mm3 (4.00-11.30)
[2022-12-25 04:43] LABS: Albumin, Blood 2.6 g/dL (3.4-5.0); Anion Gap 6 mmol/L (6-16); Blood Urea Nitrogen 22 mg/dL (8-24); Bun/Creatinine Ratio 22.4 (12.0-20.0); CO2, Blood 32 mmol/L (21-32); Calcium, Blood 8.1 mg/dL (8.5-10.1); Chloride, Blood 103 mmol/L (98-108); Creatinine, Blood 0.98 mg/dL (0.60-1.20); Glomerular Filtration Rate 79 (60-); Glucose, Blood 89 mg/dL (70-99); Phosphorus, Blood 2.6 mg/dL (2.5-4.9); Potassium, Blood 3.1 mmol/L (3.5-5.5); Sodium, Blood 141 mmol/L (136-145)
[2022-12-25 04:45] LABS: International Normalized Ratio 2.64
--- NOTE | 2022-12-25 06:22 | NUR ---
SHIFT SUMMARY: ORITNED TO SELF ONLY. CONFUSED BUT COOPERATIVE. FORGETFUL WHEN WAKING UP. ATTEMPTING TO GET OUT OF BED TO VOID. NEEDS REMINDING CONDAM CATHETER IN PLACE. EASILY REDIRECTED. DENIES ANY COMPLAINTS OF SOB OR CHEST PAIN. VSS. NO ACUTE CHANGES DURING THIS SHIFT.
[2022-12-25 11:54] LABS: Percent Saturation 8.1 % (20.0-50.0)
--- NOTE | 2022-12-25 14:19 | NUR ---
PATIENT ORIENTED TO SELF AND ABLE TO TELL ME HE IS AT THE HOSPITAL. VERY CONFUSED OTHERWISE. BED ALARM IN PLACE. VERY KIND AND COOPERATIVE WITH CARES. DR. PACKER BY THIS MORNING, NO NEW ORDER FOR THIS RN TO PLACE. K REPLACED WITH PO MEDS. ABX INFUSED THIS AM. MEDICAL STATUS NO TELE. BP STABLE. HR 70-90'S. DENIES CHEST PAIN/PRESSURE. EATING AND VOIDING WNL. CONDOM CATH REMOVED AND PATIENT USING URINAL WITH ASSISTANCE. NEEDING HELP SETTING UP TRAY. POOR VISION. SCHEDULE ON December FOR EYE SURGERY PER SISTER SAMPSON. SAMPSON STATED PATIENT HAS A CAREGIVER THAT COMES IN 3 TIMES A WEEK TO HELP WITH HOUSE CHORES, BUT DOES NOT HELP MANAGE PATIENT MEDS. PATIENT NOT ABLE TO TELL ME HIS HOME MEDICATIONS AND UNABLE TO READ PILL BOTTLES AT THIS TIME HE STATES. DAUGHTER AND SISTER BOTH UPDATED VIA PHONE. PATIENT ABLE TO SPEAK WITH SISTER ON PHONE. CALL LIGHT IN REACH. WILL CONTINUE TO MONITOR.
--- NOTE | 2022-12-25 17:54 | NUR ---
NO ACUTE CHANGES, SEE PREVIOUS NOTES. VITAL SIGNS REMAIN STABLE. EATING WNL. BED ALARM ON. PATIENT COMPLAINS OF SOME ACHES IN HIS BACK AND HIPS. TYLENOL GIVEN PER EMAR. EATING DINNER AT THIS TIME. WILL CONTINUE TO MONITOR AND REPORT OFF TO ONCOMING RN.
--- NOTE | 2022-12-25 21:41 | NUR ---
ASSUMED PT CARE FROM [facility]UR RANDHAWA ON DAYSHI. PT RESTING IN BED WITH EYES CLOSED, APPEARS TO BE SLEEPING. WAKES EASILY TO NOISE. ORIENTED TO SELF ONLY. ABLE TO FOLLOW DIRECTIONS AND COOPERATIVE. VSS. DENIES ANY SOB OR CHEST PAIN. O2 SATS 96 ON RA. IRREGULAR HR NOTED WITH OSCULTATION DUE TO CHRONIC A-FIB. DENIES NEEDS AT THIS TIME. CALL LIGHT IN REACH. BED ALARM ON.
[2022-12-26 05:22] LABS: International Normalized Ratio 2.44; Prothrombin Time Results 24.2 Sec (9.7-11.5)
--- NOTE | 2022-12-26 05:24 | NUR ---
SHIFT SUMMARY: NO ACUTE CHANGES NOTED DURING THIS SHIFT. VITAL SIGNS STABLE. SLEEPING ACCEPT TO STAND AT BEDSIDE AND USE URINAL. BED ALARM ON.
[2022-12-26 05:40] LABS: Digoxin (Lanoxin) 0.65 ug/mL (0.80-2.00)
--- NOTE | 2022-12-26 17:41 | NUR ---
SHIFT SUMMARY: NO ACUTE CHANGES T/OUT TODAY. PT ALERT, ORIENTED TO SELF, LOCATION, SOME SITUATION. PT IS COOPERATIVE W/CARE, ABLE TO MAKE NEEDS KNOWN. O2 SATS MAINTAINED >93% ON RA. HR IN 70s, NO TELEMETRY MONITORING. PT FAIRLY INDEPENDENT IN ROOM, BENEFITS FROM ASSISTANCE USING URINAL AND SETTING UP TRAYS DUE TO POOR VISION. PT's SISTER (KELYL) UPDATED VIA TELEPHONE AND REPORTS AN UPCOMING EYE SURGERY SCHEDULED 01/19/23. PT MEDICATED x1 FOR C/O L SIDE/RIB/LUQ PAIN, PT REPORTS IMPROVEMENT. PT WORKS W/PT TODAY, TOLERATES AMBULATING INTO HALLWAY. CURRENT PLAN IS SNF PLACEMENT, PENDING APPROVAL. PT RESTING QUIETLY IN ROOM, WILL CONTINUE TO MONITOR AND TREAT ACCORDINGLY UNTIL CHANGE OF SHIFT.
--- NOTE | 2022-12-26 19:59 | NUR ---
ASSUMED PT CARE FROM BREE RANDHAWA ON . PT RESTING IN BED WITH EYES CLOSED, WAKES EASILY TO NOISE. ORIENTED TO SELF. COOPERTIVE AND ABLE TO FOLLOW DIRECTIONS. VITAL SIGNS STABLE. RESPIRATIONS EVEN AND UNLABORED, 98% ON RA. NO COMPLAINTS OF PAIN OR DISCOMFORT AT THIS TIME. REPOSITIONED FOR COMFORT. WARM BLANKETS PROVIDED AT PT REQUEST. DENIES NEEDS AT THIS TIME. CALL LIGHT IN REACH. BED ALARM ON.
[2022-12-27 03:47] LABS: International Normalized Ratio 2.35; Prothrombin Time Results 23.3 Sec (9.7-11.5)
--- NOTE | 2022-12-27 10:30 | NUR ---
AM NOTE: ASSUMED CARE OF PT AFTER RECEIVING REPORT FROM EDIS FRIEDMAN AT APPROX 0715. PT RESTING QUIETLY IN BED, AROUSES EASILY TO STAFF IN ROOM, COOPERATIVE W/CARE AND ABLE TO MAKE NEEDS KNOWN. PT CONFUSED BRIEFLY ABOUT DATE, REORIENTED EASILY. PT DENIES SOB/CP. PT FEEDS SELF AND TAKES PILLS W/OUT DIFFICULTY. PT AMBULATES HALLS W/PT AND TOLERATES WELL W/SBA.
[2022-12-27] MEDS ORDERED: FURO40 PO (11:20)
[2022-12-27] MEDS ORDERED: ACET500 PO (11:20)
[2022-12-27] MEDS ORDERED: ZADITOR5 M1 LEFTEYE (11:21)
[2022-12-27] MEDS ORDERED: MIRALAX17 GM PO (11:22)
[2022-12-27] MEDS ORDERED: KLOR-CON M1010 MEQ PO (11:22)
[2022-12-27] MEDS ORDERED: Lisinopril2.5 MG PO (11:22)
[2022-12-27] MEDS ORDERED: Vitamin D1000 UNI1 PO (11:23)
[2022-12-27 12:07] LABS: SARS-Cov-2 (COVID-19) PCR, MMC NEGATIVE (NEGATIVE)
--- NOTE | 2022-12-27 13:32 | NUR ---
PENDING DISCHARGE: PT HAS BEEN ACCEPTED FOR DISCHARGE TO [facility]. IV ACCESS HAS BEEN DC'd WNL. PT UPDATED ON PLAN, V/U. DEEPA, CARE MANAGEMENT, TO CALL PT's SISTER W/UPDATE RE: PLAN. REPORT HAS BEEN GIVEN TO LORENZO AT [facility]. AWAITING TRANSFER COMPANY FOR DISCHARGE.
--- NOTE | 2022-12-27 14:24 | NUR ---
DISCHARGE: TRANSPORT ARRIVES FOR PT. PT TRANSFERS SELF TO W/C, ESCORTED FROM UNIT W/OUT INCIDENT.
== END 2022-12-27 14:24 | DRG 193 ==
LOC: ER 14:49 → PCU 22:14
PROVIDERS: Emergency Medicine; Internal Medicine; ADMIT Internal Medicine
PROC: 0T9B70Z Drainage of Bladder with Drainage Device, Via Natural or Artificial Opening (ICD-10-PCS; principal; 2022-12-24)
DX: J18.9 Pneumonia, unspecified organism (principal); E43 Unspecified severe protein-calorie malnutrition; G92.8 Other toxic encephalopathy; I50.43 Acute on chronic combined systolic (congestive) and diastolic (congestive) heart failure; J96.00 Acute respiratory failure, unspecified whether with hypoxia or hypercapnia; N39.0 Urinary tract infection, site not specified; E87.20 Acidosis, unspecified; E87.1 Hypo-osmolality and hyponatremia; N17.9 Acute kidney failure, unspecified; J44.0 Chronic obstructive pulmonary disease with (acute) lower respiratory infection; I47.20 Ventricular tachycardia, unspecified; Z68.1 Body mass index [BMI] 19.9 or less, adult; I48.20 Chronic atrial fibrillation, unspecified; E87.0 Hyperosmolality and hypernatremia; I11.0 Hypertensive heart disease with heart failure; F03.90 Unspecified dementia, unspecified severity, without behavioral disturbance, psychotic disturbance, mood disturbance, and anxiety; E87.6 Hypokalemia; R74.01 Elevation of levels of liver transaminase levels; H54.7 Unspecified visual loss; D50.9 Iron deficiency anemia, unspecified; R62.7 Adult failure to thrive; I07.1 Rheumatic tricuspid insufficiency; I27.20 Pulmonary hypertension, unspecified; D63.8 Anemia in other chronic diseases classified elsewhere; K26.9 Duodenal ulcer, unspecified as acute or chronic, without hemorrhage or perforation; R79.1 Abnormal coagulation profile; E78.5 Hyperlipidemia, unspecified; H10.10 Acute atopic conjunctivitis, unspecified eye; H40.9 Unspecified glaucoma; F12.10 Cannabis abuse, uncomplicated; N40.0 Benign prostatic hyperplasia without lower urinary tract symptoms; Z60.2 Problems related to living alone; Z20.822 Contact with and (suspected) exposure to COVID-19; Z87.891 Personal history of nicotine dependence; Z95.2 Presence of prosthetic heart valve; Z79.01 Long term (current) use of anticoagulants; Z79.899 Other long term (current) drug therapy; Z90.49 Acquired absence of other specified parts of digestive tract; Z98.890 Other specified postprocedural states; Z79.52 Long term (current) use of systemic steroids; Z79.51 Long term (current) use of inhaled steroids; Z79.2 Long term (current) use of antibiotics
CPT/HCPCS: 0241U; 36415; 70450; 71045; 71046; 71260; 80053; 80069; 80162; 81001; 82728; 83540; 83550; 83605; 83735; 83880; 84145; 84436; 84484; 85025; 85027; 85610; 87040; 87086; 92526; 92610; 93005; 93010; 93306; 94760; 96365-59; 97110; 97116; 97162; 97166; 97530; 97535; 99285-25; A9270; C1751; J0456; J0696; J1940; J2543; J2916; J3370; J3480; J7030; J7050; Q9967; U0004

== ENCOUNTER 2023-01-19 12:58 | Day surgery (SDC) | payer OTHER ==
[~2023-01-19] VITALS: Ht 185.4 cm; Wt 60.1 kg
[~2023-01-19 12:58] MED LIST changes: +ACET500 PO; +FURO40 PO; +KLOR-CON M1010 MEQ PO; +Lisinopril2.5 MG PO; +MIRALAX17 GM PO; +Vitamin D1000 UNI1 PO; +ZADITOR5 M1 LEFTEYE
[2023-01-19] MEDS ORDERED: Midodrine HCl2.5 MG PO (13:26)
--- NOTE | 2023-01-19 13:30 | NUR ---
01/19/23 1330 Luz Lorenz 1320 PLEDGET AT 1322
== END 2023-01-19 14:45 | disposition home or self-care (01) ==
LOC: ORSCSDS 12:58
PROVIDERS: Ophthalmology
PROC: 08RK3JZ Replacement of Left Lens with Synthetic Substitute, Percutaneous Approach (ICD-10-PCS; principal; 2023-01-19 14:00)
DX: H25.13 Age-related nuclear cataract, bilateral (principal); H21.81 Floppy iris syndrome; I12.9 Hypertensive chronic kidney disease with stage 1 through stage 4 chronic kidney disease, or unspecified chronic kidney disease; N18.9 Chronic kidney disease, unspecified; I48.91 Unspecified atrial fibrillation; Z79.01 Long term (current) use of anticoagulants; J44.9 Chronic obstructive pulmonary disease, unspecified; I25.10 Atherosclerotic heart disease of native coronary artery without angina pectoris; E78.5 Hyperlipidemia, unspecified; N40.0 Benign prostatic hyperplasia without lower urinary tract symptoms; Z79.82 Long term (current) use of aspirin; Z79.899 Other long term (current) drug therapy
CPT/HCPCS: J2001; J2250; J3010; J3301; J7040; V2632

== ENCOUNTER 2023-01-31 14:17 | Day surgery (SDC) | payer OTHER ==
[~2023-01-31] VITALS: Ht 185.4 cm; Wt 61.6 kg
== END 2023-01-31 16:32 | disposition home or self-care (01) ==
LOC: ORSCSDS 14:17
PROVIDERS: Ophthalmology
PROC: 08RJ3JZ Replacement of Right Lens with Synthetic Substitute, Percutaneous Approach (ICD-10-PCS; principal; 2023-01-31 15:30)
DX: H25.11 Age-related nuclear cataract, right eye (principal); H52.201 Unspecified astigmatism, right eye; I10 Essential (primary) hypertension; I25.10 Atherosclerotic heart disease of native coronary artery without angina pectoris; J44.9 Chronic obstructive pulmonary disease, unspecified; Z87.891 Personal history of nicotine dependence; I48.91 Unspecified atrial fibrillation; Z79.01 Long term (current) use of anticoagulants; N40.0 Benign prostatic hyperplasia without lower urinary tract symptoms; F03.90 Unspecified dementia, unspecified severity, without behavioral disturbance, psychotic disturbance, mood disturbance, and anxiety; Z79.899 Other long term (current) drug therapy
CPT/HCPCS: J2001; J2250; J3010; J3300; J7040; V2632

== ENCOUNTER 2023-06-04 15:09 | Emergency (ER) | payer OTHER ==
[~2023-06-04] VITALS: Ht 185.4 cm; Wt 65.8 kg
[2023-06-04 15:35] LABS: BASOPHILS ABSOLUTE AUTO 0.04 K/mm3 (0.00-0.23); BASOPHILS PERCENT AUTO 1 % (0-2); EOSINOPHILS ABSOLUTE AUTO 0.07 K/mm3 (0.00-0.68); EOSINOPHILS PERCENT AUTO 2 % (0-6); Hematocrit 32.9 % (37.0-53.0); Hemoglobin 10.7 g/dL (13.5-17.5); IMMATURE GRAN ABSOLUTE AUTO 0.01 K/mm3 (0.00-0.10); IMMATURE GRAN PERCENT AUTO 0 % (0-1); LYMPHOCYTES ABSOLUTE AUTO 0.73 K/mm3 (0.84-5.20); LYMPHOCYTES PERCENT AUTO 18 % (21-46); MONOCYTES PERCENT AUTO 10 % (4-13); Mean Corpuscular HGB 28.5 pg (26.0-34.0); Mean Corpuscular HGB Conc 32.5 g/dL (31.5-36.5); Mean Corpuscular Volume 88 fL (80-100); Mean Platelet Volume 10.3 fL (9.1-12.4); NEUTROPHILS ABSOLUTE AUTO 2.93 K/mm3 (1.96-9.15); NEUTROPHILS PERCENT AUTO 70 % (41-73); Platelet Count 184 K/mm3 (150-400); RDW Coefficient Variation 16.8 % (11.7-14.2); RDW Standard Deviation 54.4 fL (35.1-46.3); Red Blood Cell Count 3.75 M/mm3 (4.30-5.90); White Blood Cell Count 4.18 K/mm3 (4.00-11.30)
[2023-06-04 15:48] LABS: Albumin, Blood 2.9 g/dL (3.4-5.0); Albumin/Globulin Ratio 0.7 (0.8-1.8); Bilirubin, Total 0.8 mg/dL (0.1-1.0); Calcium, Blood 8.6 mg/dL (8.5-10.1); Creatinine, Blood 1.18 mg/dL (0.60-1.20); Globulin, Blood 3.9 g/dL (2.2-4.0); Potassium, Blood 4.4 mmol/L (3.5-5.5); Total Protein, Blood 6.8 g/dL (6.4-8.2)
[2023-06-04 15:57] LABS: International Normalized Ratio 2.88; Prothrombin Time Results 28.5 Sec (9.7-11.5)
[2023-06-04 16:06] LABS: Digoxin (Lanoxin) 0.47 ug/mL (0.80-2.00)
[2023-06-04 16:30] LABS: Source, Urine Clean Catch
[2023-06-04 16:43] LABS: Appearance, Urine Clear (Clear); Bilirubin, Urine Neg (Neg); Blood, Urine Neg (Neg); Color, Urine Yellow (P-Yellow); Glucose Qualitative, Urine Neg (Neg); Ketones, Urine Neg (Neg); Leukocyte Esterase, Urine Neg (Neg); Nitrite, Urine Neg (Neg); Protein, Urine 1+ (Neg); Urobilinogen, Urine 1+ (Normal)
[2023-06-04 19:40] VITALS: BP 115/73
== END 2023-06-04 19:46 | disposition home or self-care (01) ==
LOC: ER 15:09
PROVIDERS: Emergency Medicine; Student in an Organized Health Care Education/Training Program
DX: S41.012A Laceration without foreign body of left shoulder, initial encounter (principal); S05.12XA Contusion of eyeball and orbital tissues, left eye, initial encounter; S50.819A Abrasion of unspecified forearm, initial encounter; R41.0 Disorientation, unspecified; I11.0 Hypertensive heart disease with heart failure; I50.20 Unspecified systolic (congestive) heart failure; I48.91 Unspecified atrial fibrillation; E78.5 Hyperlipidemia, unspecified; Z79.01 Long term (current) use of anticoagulants; Z79.899 Other long term (current) drug therapy; W19.XXXA Unspecified fall, initial encounter
CPT/HCPCS: 12001; 70450; 80053; 80162; 85025; 85610; 93005; 93010; 99284-25; A9270

== ENCOUNTER 2023-06-16 14:51 | Emergency (ER) | payer OTHER ==
[~2023-06-16] VITALS: Ht 185.4 cm; Wt 59.0 kg
[2023-06-16 15:14] LABS: BASOPHILS ABSOLUTE AUTO 0.07 K/mm3 (0.00-0.23); BASOPHILS PERCENT AUTO 1 % (0-2); EOSINOPHILS ABSOLUTE AUTO 0.06 K/mm3 (0.00-0.68); EOSINOPHILS PERCENT AUTO 1 % (0-6); Hematocrit 37.7 % (37.0-53.0); Hemoglobin 12.2 g/dL (13.5-17.5); IMMATURE GRAN ABSOLUTE AUTO 0.03 K/mm3 (0.00-0.10); IMMATURE GRAN PERCENT AUTO 1 % (0-1); LYMPHOCYTES ABSOLUTE AUTO 1.09 K/mm3 (0.84-5.20); LYMPHOCYTES PERCENT AUTO 18 % (21-46); MONOCYTES ABSOLUTE AUTO 0.58 K/mm3 (0.16-1.47); MONOCYTES PERCENT AUTO 9 % (4-13); Mean Corpuscular HGB 27.8 pg (26.0-34.0); Mean Corpuscular HGB Conc 32.4 g/dL (31.5-36.5); Mean Corpuscular Volume 86 fL (80-100); Mean Platelet Volume 9.6 fL (9.1-12.4); NEUTROPHILS ABSOLUTE AUTO 4.41 K/mm3 (1.96-9.15); NEUTROPHILS PERCENT AUTO 71 % (41-73); Platelet Count 236 K/mm3 (150-400); RDW Coefficient Variation 16.5 % (11.7-14.2); RDW Standard Deviation 51.2 fL (35.1-46.3); Red Blood Cell Count 4.39 M/mm3 (4.30-5.90); White Blood Cell Count 6.24 K/mm3 (4.00-11.30)
[2023-06-16 15:33] LABS: Albumin, Blood 2.9 g/dL (3.4-5.0); Albumin/Globulin Ratio 0.7 (0.8-1.8); Bilirubin, Total 0.8 mg/dL (0.1-1.0); Bun/Creatinine Ratio 20.6 (12.0-20.0); Calcium, Blood 8.6 mg/dL (8.5-10.1); Creatinine, Blood 0.92 mg/dL (0.60-1.20); Potassium, Blood 4.4 mmol/L (3.5-5.5); Total Protein, Blood 6.9 g/dL (6.4-8.2)
[2023-06-16 16:58] LABS: International Normalized Ratio 4.57
[2023-06-16 17:14] LABS: Digoxin (Lanoxin) 0.76 ug/mL (0.80-2.00)
[2023-06-16 20:00] VITALS: BP 146/90
== END 2023-06-16 20:22 | disposition home or self-care (01) ==
LOC: ER 14:51
PROVIDERS: Emergency Medicine
DX: R06.02 Shortness of breath (principal); J90 Pleural effusion, not elsewhere classified; I11.0 Hypertensive heart disease with heart failure; I48.91 Unspecified atrial fibrillation; I50.20 Unspecified systolic (congestive) heart failure; E78.5 Hyperlipidemia, unspecified; Z79.899 Other long term (current) drug therapy; Z79.01 Long term (current) use of anticoagulants
CPT/HCPCS: 71046; 80053; 80162; 83880; 84484; 85025; 85610; 93005; 93010; 99284-25

== ENCOUNTER 2023-07-11 10:22 | Emergency (ER) | payer OTHER ==
[~2023-07-11] VITALS: Ht 185.4 cm; Wt 61.2 kg
[2023-07-11 11:15] LABS: BASOPHILS ABSOLUTE AUTO 0.05 K/mm3 (0.00-0.23); BASOPHILS PERCENT AUTO 1 % (0-2); EOSINOPHILS ABSOLUTE AUTO 0.06 K/mm3 (0.00-0.68); EOSINOPHILS PERCENT AUTO 1 % (0-6); Hemoglobin 11.8 g/dL (13.5-17.5); IMMATURE GRAN ABSOLUTE AUTO 0.02 K/mm3 (0.00-0.10); IMMATURE GRAN PERCENT AUTO 0 % (0-1); LYMPHOCYTES PERCENT AUTO 15 % (21-46); MONOCYTES PERCENT AUTO 9 % (4-13); Mean Corpuscular HGB 28.8 pg (26.0-34.0); Mean Corpuscular HGB Conc 32.8 g/dL (31.5-36.5); Mean Corpuscular Volume 88 fL (80-100); Mean Platelet Volume 10.3 fL (9.1-12.4); NEUTROPHILS ABSOLUTE AUTO 3.34 K/mm3 (1.96-9.15); NEUTROPHILS PERCENT AUTO 73 % (41-73); Platelet Count 232 K/mm3 (150-400); RDW Coefficient Variation 17.7 % (11.7-14.2); RDW Standard Deviation 57.5 fL (35.1-46.3); White Blood Cell Count 4.57 K/mm3 (4.00-11.30)
[2023-07-11 11:46] LABS: International Normalized Ratio 4.24
[2023-07-11 11:54] LABS: Magnesium, Blood 2.3 mg/dL (1.6-2.4)
[2023-07-11 11:55] LABS: Albumin, Blood 3.1 g/dL (3.4-5.0); Albumin/Globulin Ratio 0.8 (0.8-1.8); Bun/Creatinine Ratio 22.1 (12.0-20.0); Calcium, Blood 8.6 mg/dL (8.5-10.1); Creatinine, Blood 1.04 mg/dL (0.60-1.20); Potassium, Blood 4.4 mmol/L (3.5-5.5); Total Protein, Blood 7.1 g/dL (6.4-8.2)
[2023-07-11 13:49] VITALS: BP 133/72
== END 2023-07-11 14:33 | disposition home or self-care (01) ==
LOC: ER 10:22
PROVIDERS: Student in an Organized Health Care Education/Training Program
DX: S09.90XA Unspecified injury of head, initial encounter (principal); T14.8XXA Other injury of unspecified body region, initial encounter; R07.81 Pleurodynia; W19.XXXA Unspecified fall, initial encounter; I11.0 Hypertensive heart disease with heart failure; I50.20 Unspecified systolic (congestive) heart failure; I48.91 Unspecified atrial fibrillation; Z79.899 Other long term (current) drug therapy; Z79.01 Long term (current) use of anticoagulants
CPT/HCPCS: 70450; 71046; 80053; 83735; 84484; 85025; 85610; 93005; 93010; 99284-25

== ENCOUNTER 2023-08-23 16:01 | Inpatient (IN) | payer OTHER ==
[~2023-08-23] VITALS: Ht 185.4 cm; Wt 64.3 kg
[~2023-08-23 16:01] MED LIST changes: -METO50ER PO; +TOPROL XL50 M1 PO; +WARF2 PO
[2023-08-23 18:30] LABS: BASOPHILS ABSOLUTE AUTO 0.04 K/mm3 (0.00-0.23); BASOPHILS PERCENT AUTO 1 % (0-2); EOSINOPHILS PERCENT AUTO 2 % (0-6); Hematocrit 40.5 % (37.0-53.0); Hemoglobin 13.3 g/dL (13.5-17.5); IMMATURE GRAN ABSOLUTE AUTO 0.02 K/mm3 (0.00-0.10); IMMATURE GRAN PERCENT AUTO 0 % (0-1); LYMPHOCYTES PERCENT AUTO 13 % (21-46); MONOCYTES ABSOLUTE AUTO 0.42 K/mm3 (0.16-1.47); MONOCYTES PERCENT AUTO 9 % (4-13); Mean Corpuscular HGB 29.3 pg (26.0-34.0); Mean Corpuscular HGB Conc 32.8 g/dL (31.5-36.5); Mean Corpuscular Volume 89 fL (80-100); Mean Platelet Volume 9.9 fL (9.1-12.4); NEUTROPHILS PERCENT AUTO 74 % (41-73); Platelet Count 196 K/mm3 (150-400); RDW Coefficient Variation 17.6 % (11.7-14.2); RDW Standard Deviation 57.2 fL (35.1-46.3); Red Blood Cell Count 4.54 M/mm3 (4.30-5.90); White Blood Cell Count 4.48 K/mm3 (4.00-11.30)
[2023-08-23] MEDS ORDERED: PANT40 PO (18:33)
[2023-08-23] MEDS ORDERED: PROLENSA3 ML BOTHEYES (18:38)
[2023-08-23] MEDS ORDERED: ASPI81CH PO (18:41)
[2023-08-23] MEDS ORDERED: LACT PO (18:41)
[2023-08-23] MEDS ORDERED: FOLI1 PO (18:42)
[2023-08-23] MEDS ORDERED: FINA5 PO (18:42)
[2023-08-23] MEDS ORDERED: ATOR40TA PO (18:42)
[2023-08-23 18:54] LABS: Albumin/Globulin Ratio 0.7 (0.8-1.8); Bilirubin, Total 0.7 mg/dL (0.1-1.0); Bun/Creatinine Ratio 17.5 (12.0-20.0); Calcium, Blood 8.6 mg/dL (8.5-10.1); Creatinine, Blood 1.03 mg/dL (0.60-1.20); Globulin, Blood 4.5 g/dL (2.2-4.0); Potassium, Blood 4.4 mmol/L (3.5-5.5); Total Protein, Blood 7.5 g/dL (6.4-8.2)
[2023-08-23 21:35] LABS: International Normalized Ratio 3.18; Prothrombin Time Results 31.3 Sec (9.7-11.5)
[2023-08-24 03:23] VITALS: BP 102/71
[2023-08-24 05:35] LABS: Hematocrit 36.8 % (37.0-53.0); Mean Corpuscular HGB Conc 32.6 g/dL (31.5-36.5); Mean Corpuscular Volume 89 fL (80-100); Mean Platelet Volume 10.5 fL (9.1-12.4); Platelet Count 195 K/mm3 (150-400); RDW Coefficient Variation 17.5 % (11.7-14.2); RDW Standard Deviation 56.6 fL (35.1-46.3); Red Blood Cell Count 4.14 M/mm3 (4.30-5.90)
[2023-08-24 05:50] LABS: International Normalized Ratio 2.92; Prothrombin Time Results 28.9 Sec (9.7-11.5)
--- NOTE | 2023-08-24 06:42 | NUR ---
PT IS AAO X 4, ON RA. PT DENIED ANY DISCOMFORT FOR THIS SHIFT. TELE IS AFIB.
--- NOTE | 2023-08-24 06:43 | NUR ---
PT LYING IN BED, EYES CLOSED, APPEARS TO BE RESTING. BREATHING IS EVEN, UNLABORED. NO APPARENT SIGNS OF DISTRESS. CALL LIGHT IS IN REACH. NO OTHER CHANGES THIS SHIFT.
[2023-08-24 07:57] VITALS: BP 108/57
[2023-08-24 16:25] VITALS: BP 135/81
--- NOTE | 2023-08-24 17:30 | NUR ---
SISTER SAMPSON PHONE NUMBER [phone]. SHE ASKS THAT WE CALL AND LET HER KNOW WHEN HE GOING TO DISCHARGE. SHE SAYS HE HAS NO RIDE. [facility] SHE CONFIRMED THE ASSISTED LIVING MOVE TO [place],
[2023-08-24 19:56] VITALS: BP 104/56
[2023-08-25 04:35] VITALS: BP 118/102
[2023-08-25 04:36] VITALS: BP 118/73
--- NOTE | 2023-08-25 05:33 | NUR ---
SHIFT SUMMERY. PT CALM AND COOPRATIVE BUT TENDS TO JUMP OUT OF BED AND NOT CALL WHEN HE NEEDS TO VOID. BED ALARM ON AND HAS BEEN SET OF SEVRAL TIME. PT AT TQAHIS TIME APPEARS TO BE ASLEEP. CALL LIGHT IN REACH BED ALARM ON.
[2023-08-25 06:09] LABS: International Normalized Ratio 2.52; Prothrombin Time Results 25.1 Sec (9.7-11.5)
[2023-08-25 08:32] VITALS: BP 118/56
[2023-08-25 16:10] VITALS: BP 115/76
[2023-08-25 19:34] VITALS: BP 117/65
--- NOTE | 2023-08-25 19:45 | NUR ---
SHIFT SUMMARY PT AWAKE DURING SHIFT REPORT, THEN BACK TO SLEEP UNTIL BREAKFAST. PT USING URINAL AT EOB WHEN IVF'S INFUSING. PT UP WITH SBA TO BTHRM USING FWW, SEVERAL TIMES THRU OUT THE DAY. PT WANTING TO BE ABLE TO WALK OCCASSIONALLY TO KEEP UP STRENGTH. DR SEVILLA IN TO SEE PT THIS AM. CT OF L EYE ORDERED AND COMPLETED. DR NAVARRETE HERE THIS AFTERNOON TO SEE PT AND PROVIDE EYE EXAM. DR SEVILLA NOTIFIED WHEN SHE ARRIVED AND CAME TO TO DISCUSS PLAN OF CARE. SUPPORT CLERK FROM [place] THAT SENT PT HERE CALLED TO CK ON PT AND MADE PT AN OPTHAMOLOGY APPT FOR Monday08/28/23 AT 10:30; APPT PLACED ON D/C INFO. NEW EYE DROPS SENT FROM PHARMACY AND STARTED TODAY; SEE EMAR. PT SITTING UP TO EOB READING AT THIS TIME. NO C/O. DENIED FURTHER NEEDS. CALL LT IN REACH. BED ALARM ON FOR SAFETY.
[2023-08-26 03:34] VITALS: BP 122/79
[2023-08-26 05:48] LABS: International Normalized Ratio 2.29; Prothrombin Time Results 22.9 Sec (9.7-11.5)
--- NOTE | 2023-08-26 05:50 | NUR ---
shift summery, pt sleeping on and off, pt awaking to void, pt attempted to use call light , but would get out of bed setting off bed alarm then tryto shut off bed alarm with call light. pt very calm and coopreative, using walker to go to br to void. call light in reach bed alarm on.
[2023-08-26 08:00] VITALS: BP 131/86
[2023-08-26 11:31] LABS: Creatinine, Blood 1.03 mg/dL (0.60-1.20); Vancomycin, Trough 14.2 ug/mL (5.0-10.0)
[2023-08-26 12:17] VITALS: BP 120/78
[2023-08-26] MEDS ORDERED: Acetaminophen325 M1 PO (14:11)
[2023-08-26] MEDS ORDERED: POLYMYXIN B-TMP10 ML LEFTEYE (14:13)
[2023-08-26] MEDS ORDERED: AMOX-CLAV 875-1 EAC5 PO (14:13)
[2023-08-26] MEDS ORDERED: PREDNISOLONE ACE5 ML LEFTEYE (14:15)
== END 2023-08-26 14:32 | disposition home or self-care (01) | DRG 603 ==
LOC: ER 16:01 → MEDS 16:02
PROVIDERS: Emergency Medicine; Internal Medicine; Nurse Practitioner Acute Care; ADMIT Internal Medicine
DX: L03.213 Periorbital cellulitis (principal); I50.22 Chronic systolic (congestive) heart failure; H20.12 Chronic iridocyclitis, left eye; H15.102 Unspecified episcleritis, left eye; I48.91 Unspecified atrial fibrillation; I11.0 Hypertensive heart disease with heart failure; E78.5 Hyperlipidemia, unspecified; K21.9 Gastro-esophageal reflux disease without esophagitis; N40.0 Benign prostatic hyperplasia without lower urinary tract symptoms; I95.89 Other hypotension; Z95.2 Presence of prosthetic heart valve; Z79.01 Long term (current) use of anticoagulants; Z79.82 Long term (current) use of aspirin
CPT/HCPCS: 36415; 70481; 80053; 80202; 82565; 83605; 85025; 85027; 85610; 94640; 94664; 94760; 96365; 96366; 96367; 96375; 99285-25; A9270; G0378; J0696; J1100; J3370; J7030; J7050; Q9967